=== PATIENT | male | born 1950 | race Caucasian/White ===

== ENCOUNTER 2021-03-22 14:42 | Inpatient (IN) | payer OTHER ==
[~2021-03-22] VITALS: Ht 182.9 cm; Wt 75.3 kg
[2021-03-22 17:24] LABS: BUN/Creatinine Ratio 27.2; Calcium 6.6 mg/dL (8.5-10.1)
[2021-03-22 17:56] LABS: Potassium 2.2 mmol/L (3.5-5.1)
[2021-03-22] MEDS ORDERED: ACETAMINOPHEN 325 MG TAB PO PRN (21:45)
[2021-03-22] MEDS ORDERED: DOCUSATE SOD 100 MG CAP PO PRN (21:45)
[2021-03-22] MEDS ORDERED: CALCIUM GLUC 1,000mg/50ml-NS 50 ML IV ONE (21:45)
[2021-03-22] MEDS ORDERED: ONDANSETRON HCL 4 MG/2 ML VIAL IV PRN (21:45)
[2021-03-22] MEDS: POTASSIUM CHL 20MEQ/100ML 100 ML IV SCH (22:19)
[2021-03-22] MEDS: SODIUM CHLOR 0.9% PF (SALINE LOCK) 10ML VIAL/SYR IV SCH (22:19)
[2021-03-22] MEDS ORDERED: MORPHINE SULFATE INJECTION 2 MG/ML SYRG IV PRN (22:30)
[2021-03-22] MEDS ORDERED: TEMAZEPAM 15 MG CAP PO ONE (22:30)
[2021-03-22] MEDS ORDERED: NITROGLYCERIN 0.4 MG SL TAB SL PRN (22:30)
[2021-03-22] MEDS: TEMAZEPAM 15 MG CAP PO PRN (22:30)
[2021-03-22] MEDS: ASCORBIC ACID 500 MG TAB PO SCH (22:30)
[2021-03-22 22:48] LABS: Hemoglobin 9.9 g/dL (13.5-17.5); Mean Corpuscular Volume 97.9 fL (80.0-100.0)
[2021-03-22 22:50] LABS: Basophils # (auto) 0 10 ^3/uL (0-0.2); Basophils % (auto) 0.6 % (0.0-2.0); Eosinophils # (auto) 0.1 10 ^3/uL (0-0.8); Eosinophils % (auto) 0.7 % (0.0-7.0); Hematocrit 28.6 % (41.0-53.0); Lymphocytes # (auto) 1.7 10 ^3/uL (0.4-5.4); Lymphocytes % (auto) 24.1 % (10.0-50.0); Mean Corpuscular Hemoglobin 33.9 pg (28.0-32.0); Mean Corpuscular Hgb Conc. 34.6 g/dL (32.0-36.0); Monocytes # (auto) 0.9 10 ^3/uL (0-1.3); Neutrophils # (auto) 4.2 10 ^3/uL (1.6-8.6); Neutrophils % (auto) 61.6 % (37.0-80.0); Nucleated Red Blood Cells % 0.1 %; Red Blood Cells 2.92 10^6/uL (4.5-5.90); Red Cell Distribution Width 13.8 % (11.8-14.3); White Blood Cell 6.9 10^3/uL (4.4-10.8)
[2021-03-22 23:00] VITALS: BP 106/73
[2021-03-22 23:07] LABS: Albumin 1.7 g/dL (3.4-5.0)
[2021-03-22 23:15] LABS: BUN/Creatinine Ratio 30.2; Bilirubin, Total 0.3 mg/dL (0.2-1.0); Phosphorus 2.7 mg/dL (2.5-4.90); Total Protein 4.8 g/dL (6.4-8.2)
[2021-03-22 23:56] LABS: Calcium 22.5 mg/dL (8.5-10.1); Magnesium 0.8 mg/dL (1.6-2.6); Potassium 1.6 mmol/L (3.5-5.1)
[2021-03-23] VITALS (7 sets, daily range): BP systolic 96–119; BP diastolic 64–78
[2021-03-23] MEDS ORDERED: POTASSIUM CHL 20MEQ/100ML 200 ML IV ONE (00:04)
[2021-03-23] MEDS: POTASSIUM CHL 20MEQ/100ML 100 ML IV SCH ×2 (00:10→03:03)
[2021-03-23 06:19] LABS: Albumin 2.2 g/dL (3.4-5.0); BUN/Creatinine Ratio 24.7; Calcium 6.4 mg/dL (8.5-10.1)
[2021-03-23 06:22] LABS: Bilirubin, Total 0.4 mg/dL (0.2-1.0); Total Protein 5.7 g/dL (6.4-8.2)
[2021-03-23 06:25] LABS: Basophils # (auto) 0 10 ^3/uL (0-0.2); Eosinophils # (auto) 0 10 ^3/uL (0-0.8); Red Cell Distribution Width 13.9 % (11.8-14.3)
[2021-03-23 06:28] LABS: Basophils % (auto) 0.4 % (0.0-2.0); Eosinophils % (auto) 0.6 % (0.0-7.0); Hemoglobin 10.9 g/dL (13.5-17.5); Lymphocytes # (auto) 1.4 10 ^3/uL (0.4-5.4); Lymphocytes % (auto) 20.7 % (10.0-50.0); Mean Corpuscular Hemoglobin 34.7 pg (28.0-32.0); Mean Corpuscular Hgb Conc. 35.3 g/dL (32.0-36.0); Mean Corpuscular Volume 98.4 fL (80.0-100.0); Monocytes # (auto) 0.7 10 ^3/uL (0-1.3); Monocytes % (auto) 10.3 % (0.0-12.0); Neutrophils # (auto) 4.7 10 ^3/uL (1.6-8.6); Nucleated Red Blood Cells % 0.1 %; Red Blood Cells 3.15 10^6/uL (4.5-5.90); White Blood Cell 6.9 10^3/uL (4.4-10.8)
[2021-03-23 06:31] LABS: Potassium 2.4 mmol/L (3.5-5.1)
[2021-03-23] MEDS: SODIUM CHLOR 0.9% PF (SALINE LOCK) 10ML VIAL/SYR IV SCH ×2 (06:39→14:12)
[2021-03-23 06:57] LABS: Cholesterol 166 mg/dL (< 200); Triglycerides 120 mg/dL (< 150)
[2021-03-23 07:00] LABS: HDL Cholesterol 64 mg/dL (40-59); LDL Cholesterol 82 mg/dL (< 100)
[2021-03-23] MEDS ORDERED: POTASSIUM CHL 20 Meq TABLET PO ONE (07:15)
[2021-03-23] MEDS ORDERED: CALCIUM GLUC 1,000mg/50ml-NS 50 ML IV ONE (07:15)
[2021-03-23] MEDS ORDERED: POTASSIUM CHL 20MEQ/100ML 100 ML IV SCH (08:45)
[2021-03-23] MEDS ORDERED: MAGNESIUM SULFATE 1GM/100ML 100 ML IV SCH (09:00)
[2021-03-23] MEDS ORDERED: FAMOTIDINE (10MG/ML) 2ML VL IV SCH (10:00)
[2021-03-23] MEDS: POTASSIUM CHL 20 Meq TABLET PO SCH ×2 (10:22→21:24)
[2021-03-23] MEDS: ASPirin 81 mg TAB PO SCH (10:22)
[2021-03-23] MEDS: MAGNESIUM SULFATE 1GM/100ML 100 ML IV SCH ×5 (10:23→18:56)
[2021-03-23] MEDS: HYDROcodone-ACET 5/325MG TAB PO PRN ×2 (12:32→13:01)
[2021-03-23] MEDS: ZINC SULFATE 220mg CAP or TAB PO SCH (13:00)
[2021-03-23] MEDS: MULTIPLE VITAMIN TAB PO SCH (13:00)
[2021-03-23] MEDS: ASCORBIC ACID 500 MG TAB PO SCH ×2 (13:01→21:23)
[2021-03-23] MEDS ORDERED: D5 IV SCH (13:15)
[2021-03-23] MEDS ORDERED: POTASSIUM CHLORIDE IV SCH (13:15)
[2021-03-23] MEDS ORDERED: SOD CHL IV SCH (13:15)
[2021-03-23] MEDS: GABAPENTIN 300 MG CAP PO SCH ×2 (14:12→21:24)
[2021-03-23] MEDS: D5W/SOD CHL 0.45%/KCL 40MEQ 1,000 ML IV SCH (14:56)
[2021-03-23] MEDS: TAMSULOSIN HYDROCHLORIDE 0.4 MG CAP PO SCH (18:23)
[2021-03-23] MEDS: TEMAZEPAM 15 MG CAP PO PRN (21:23)
[2021-03-24] VITALS (7 sets, daily range): BP systolic 100–118; BP diastolic 66–80
[2021-03-24] MEDS: SODIUM CHLOR 0.9% PF (SALINE LOCK) 10ML VIAL/SYR IV SCH ×3 (00:12→22:10)
[2021-03-24] MEDS ORDERED: TEMA30CA PO (01:33)
[2021-03-24] MEDS ORDERED: TIZA4CAP PO (01:33)
[2021-03-24] MEDS ORDERED: ONDA-144 PO (01:33)
[2021-03-24] MEDS ORDERED: FOLI1TAB6 PO (01:33)
[2021-03-24] MEDS ORDERED: FELO10TA3 PO (01:33)
[2021-03-24] MEDS ORDERED: POTA10TA51 PO (01:33)
[2021-03-24] MEDS ORDERED: TAMS0.4C36 PO (01:33)
[2021-03-24] MEDS ORDERED: OMEP20TA PO (01:33)
[2021-03-24] MEDS ORDERED: CHOL20007 OR (01:33)
[2021-03-24] MEDS: D5W/SOD CHL 0.45%/KCL 40MEQ 1,000 ML IV SCH ×3 (06:03→20:30)
[2021-03-24] MEDS: GABAPENTIN 300 MG CAP PO SCH ×3 (06:03→22:10)
[2021-03-24] MEDS ORDERED: ENOXAPARIN SOD 40 MG/0.4 ML SYRINGE SC SCH (10:00)
[2021-03-24] MEDS: MULTIPLE VITAMIN TAB PO SCH (10:06)
[2021-03-24] MEDS: ZINC SULFATE 220mg CAP or TAB PO SCH (10:06)
[2021-03-24] MEDS: ASPirin 81 mg TAB PO SCH (10:06)
[2021-03-24] MEDS: ASCORBIC ACID 500 MG TAB PO SCH ×2 (10:06→22:10)
[2021-03-24] MEDS ORDERED: DEXTROSE (50%) 50ML SYRG IV PRN (10:15)
[2021-03-24 10:52] LABS: Potassium 3.2 mmol/L (3.5-5.1)
[2021-03-24 10:57] LABS: Basophils # (auto) 0 10 ^3/uL (0-0.2); Basophils % (auto) 0.2 % (0.0-2.0); Eosinophils # (auto) 0 10 ^3/uL (0-0.8); Nucleated Red Blood Cells % 0.1 %; Red Blood Cells 2.83 10^6/uL (4.5-5.90)
[2021-03-24 10:59] LABS: Eosinophils % (auto) 0.3 % (0.0-7.0); Hematocrit 28.2 % (41.0-53.0); Hemoglobin 9.7 g/dL (13.5-17.5); Lymphocytes # (auto) 1.1 10 ^3/uL (0.4-5.4); Lymphocytes % (auto) 10.9 % (10.0-50.0); Mean Corpuscular Hemoglobin 34.4 pg (28.0-32.0); Mean Corpuscular Hgb Conc. 34.6 g/dL (32.0-36.0); Mean Corpuscular Volume 99.5 fL (80.0-100.0); Monocytes # (auto) 0.7 10 ^3/uL (0-1.3); Monocytes % (auto) 7.4 % (0.0-12.0); Neutrophils # (auto) 8.1 10 ^3/uL (1.6-8.6); Neutrophils % (auto) 81.2 % (37.0-80.0); Red Cell Distribution Width 14.1 % (11.8-14.3); White Blood Cell 9.9 10^3/uL (4.4-10.8)
[2021-03-24 11:01] LABS: Albumin 2.1 g/dL (3.4-5.0); BUN/Creatinine Ratio 25.4; Bilirubin, Total 0.6 mg/dL (0.2-1.0); Calcium 6.6 mg/dL (8.5-10.1); Total Protein 5.1 g/dL (6.4-8.2)
[2021-03-24] MEDS ORDERED: FUROSEMIDE 20 MG/2 ML VIAL IV ONE (11:15)
[2021-03-24] MEDS: ACCU-CHEK COMFORT CURVE STRIP VI SCH ×3 (11:29→22:23)
[2021-03-24] MEDS: InsuLIN REG 1unit/0.01ml Soln (100units/ml) SC SCH ×3 (11:29→22:00)
[2021-03-24] MEDS: TAMSULOSIN HYDROCHLORIDE 0.4 MG CAP PO SCH (17:35)
[2021-03-24] MEDS: ALBUTEROL SULF 2.5 MG/0.5ML(0.5%) NEB SOLN NEB SCH ×2 (18:00→22:00)
[2021-03-24] MEDS: IPRATROPIUM BROM 0.5 MG/2.5ML INH SOL NEB SCH ×2 (18:00→22:00)
[2021-03-24] MEDS: TEMAZEPAM 15 MG CAP PO PRN (22:10)
[2021-03-24] MEDS: HYDROcodone-ACET 5/325MG TAB PO PRN (22:11)
[2021-03-25 05:30] VITALS: BP 106/70
[2021-03-25] MEDS: HYDROcodone-ACET 5/325MG TAB PO PRN ×3 (05:44→18:40)
[2021-03-25] MEDS: GABAPENTIN 300 MG CAP PO SCH ×3 (05:44→21:19)
[2021-03-25] MEDS: SODIUM CHLOR 0.9% PF (SALINE LOCK) 10ML VIAL/SYR IV SCH ×3 (05:45→21:19)
[2021-03-25] MEDS: D5W/SOD CHL 0.45%/KCL 40MEQ 1,000 ML IV SCH (05:46)
[2021-03-25] MEDS: InsuLIN REG 1unit/0.01ml Soln (100units/ml) SC SCH (05:46)
[2021-03-25] MEDS: ACCU-CHEK COMFORT CURVE STRIP VI SCH (05:46)
[2021-03-25] MEDS: IPRATROPIUM BROM 0.5 MG/2.5ML INH SOL NEB SCH ×4 (05:50→18:00)
[2021-03-25] MEDS: ALBUTEROL SULF 2.5 MG/0.5ML(0.5%) NEB SOLN NEB SCH ×4 (05:55→18:00)
[2021-03-25 05:56] LABS: Basophils # (auto) 0 10 ^3/uL (0-0.2); Eosinophils # (auto) 0.1 10 ^3/uL (0-0.8); Hemoglobin 9.6 g/dL (13.5-17.5); Lymphocytes # (auto) 1.3 10 ^3/uL (0.4-5.4); Neutrophils # (auto) 6.2 10 ^3/uL (1.6-8.6); Neutrophils % (auto) 73.8 % (37.0-80.0)
[2021-03-25 05:57] LABS: Basophils % (auto) 0.1 % (0.0-2.0); Eosinophils % (auto) 0.9 % (0.0-7.0); Hematocrit 28.3 % (41.0-53.0); Lymphocytes % (auto) 15.4 % (10.0-50.0); Mean Corpuscular Hemoglobin 34.1 pg (28.0-32.0); Mean Corpuscular Hgb Conc. 33.9 g/dL (32.0-36.0); Mean Corpuscular Volume 100.4 fL (80.0-100.0); Monocytes # (auto) 0.8 10 ^3/uL (0-1.3); Monocytes % (auto) 9.8 % (0.0-12.0); Red Blood Cells 2.81 10^6/uL (4.5-5.90); Red Cell Distribution Width 14.1 % (11.8-14.3); White Blood Cell 8.4 10^3/uL (4.4-10.8)
[2021-03-25 06:19] LABS: Albumin 2.1 g/dL (3.4-5.0); Calcium 7.1 mg/dL (8.5-10.1); Potassium 3.7 mmol/L (3.5-5.1)
[2021-03-25 06:24] LABS: BUN/Creatinine Ratio 25.8; Bilirubin, Total 0.5 mg/dL (0.2-1.0); Total Protein 5.1 g/dL (6.4-8.2)
[2021-03-25 09:00] VITALS: BP 96/55
[2021-03-25] MEDS ORDERED: SPIRONOLACTONE 25 MG TAB PO SCH (10:00)
[2021-03-25] MEDS ORDERED: predniSONE 20 MG TAB PO SCH (10:00)
[2021-03-25] MEDS ORDERED: AZITHROMYCIN 250 MG TAB PO SCH (10:00)
[2021-03-25] MEDS ORDERED: MAGNESIUM OXIDE 400 MG TAB PO ONE (10:15)
[2021-03-25] MEDS ORDERED: FUROSEMIDE 20 MG/2 ML VIAL IV ONE (10:15)
[2021-03-25] MEDS ORDERED: PIPERACILLIN-TAZOB 3.375GM 100 ML IV ONE (10:15)
[2021-03-25] MEDS ORDERED: POTASSIUM CHL 20 Meq TABLET PO ONE (10:15)
[2021-03-25] MEDS ORDERED: ENOXAPARIN SOD 80 MG/0.8ML SYRINGE SC ONE (10:15)
[2021-03-25] MEDS: ASPirin 81 mg TAB PO SCH (10:20)
[2021-03-25] MEDS: SPIRONOLACTONE 25 MG TAB PO SCH (10:21)
[2021-03-25] MEDS: MULTIPLE VITAMIN TAB PO SCH (10:21)
[2021-03-25] MEDS ORDERED: IOHEXOL 300 MG/ML 100ML BOTTLE IJ ONE (10:29)
[2021-03-25] MEDS ORDERED: DIGOXIN (250MCG/ML) 2 ML AMPULE IV ONE (10:30)
[2021-03-25 11:10] LABS: Folate (Folic Acid) 9.6 ng/mL (5.38-24)
[2021-03-25 11:20] LABS: INR 1.03 (0.9-1.15); Partial Thromboplastin Time 30.9 sec (23.6-33.0)
[2021-03-25 13:00] VITALS: BP_SYST 106; BP_SYST 96; BP_SYST 99; BP_DIAS 66; BP_DIAS 69
[2021-03-25 17:00] VITALS: BP 121/78
[2021-03-25] MEDS ORDERED: IOHEXOL 350 MG/ML 100ML IJ ONE (17:28)
[2021-03-25] MEDS: TAMSULOSIN HYDROCHLORIDE 0.4 MG CAP PO SCH (18:11)
[2021-03-25] MEDS: PIPERACILLIN-TAZOB 3.375GM 100 ML IV SCH (18:11)
[2021-03-25 20:00] VITALS: BP 100/57
[2021-03-25] MEDS: MAGNESIUM OXIDE 400 MG TAB PO SCH (21:19)
[2021-03-25 22:00] VITALS: BP 122/68
[2021-03-25] MEDS ORDERED: ENOXAPARIN SOD 80 MG/0.8ML SYRINGE SC SCH (22:00)
[2021-03-26] MEDS: ALBUTEROL SULF 2.5 MG/0.5ML(0.5%) NEB SOLN NEB SCH (01:53)
[2021-03-26] MEDS: IPRATROPIUM BROM 0.5 MG/2.5ML INH SOL NEB SCH (01:53)
[2021-03-26 06:09] LABS: Basophils # (auto) 0 10 ^3/uL (0-0.2); Basophils % (auto) 0.3 % (0.0-2.0); Eosinophils # (auto) 0 10 ^3/uL (0-0.8); Eosinophils % (auto) 0.4 % (0.0-7.0); Hematocrit 27.8 % (41.0-53.0); Hemoglobin 9.4 g/dL (13.5-17.5); Lymphocytes # (auto) 1.3 10 ^3/uL (0.4-5.4); Lymphocytes % (auto) 13.1 % (10.0-50.0); Mean Corpuscular Hemoglobin 33.9 pg (28.0-32.0); Mean Corpuscular Hgb Conc. 33.8 g/dL (32.0-36.0); Mean Corpuscular Volume 100.3 fL (80.0-100.0); Monocytes # (auto) 1.1 10 ^3/uL (0-1.3); Monocytes % (auto) 10.6 % (0.0-12.0); Neutrophils # (auto) 7.5 10 ^3/uL (1.6-8.6); Neutrophils % (auto) 75.6 % (37.0-80.0); Nucleated Red Blood Cells % 0.1 %; Red Blood Cells 2.77 10^6/uL (4.5-5.90); Red Cell Distribution Width 13.6 % (11.8-14.3)
[2021-03-26 06:29] LABS: Potassium 4.6 mmol/L (3.5-5.1)
[2021-03-26 06:50] LABS: Albumin 2.2 g/dL (3.4-5.0); BUN/Creatinine Ratio 39.3; Bilirubin, Total 0.4 mg/dL (0.2-1.0); Calcium 7.5 mg/dL (8.5-10.1); Total Protein 5.3 g/dL (6.4-8.2)
[2021-03-26] MEDS: PIPERACILLIN-TAZOB 3.375GM 100 ML IV SCH ×3 (07:03→18:34)
[2021-03-26] MEDS: GABAPENTIN 300 MG CAP PO SCH ×3 (07:03→22:46)
[2021-03-26] MEDS: SODIUM CHLOR 0.9% PF (SALINE LOCK) 10ML VIAL/SYR IV SCH ×3 (07:03→22:44)
[2021-03-26] MEDS ORDERED: ALBUTEROL SULF 2.5 MG/0.5ML(0.5%) NEB SOLN NEB PRN (07:45)
[2021-03-26] MEDS ORDERED: IPRATROPIUM BROM 0.5 MG/2.5ML INH SOL NEB PRN (07:45)
[2021-03-26 09:00] VITALS: BP 120/87
[2021-03-26] MEDS ORDERED: DIGOXIN 0.25 MG TAB PO SCH (10:00)
[2021-03-26] MEDS ORDERED: APIXABAN 5 MG TAB PO SCH (10:00)
[2021-03-26] MEDS ORDERED: chlordiazePOXIDE HCL 25 MG CAP PO PRN (10:00)
[2021-03-26] MEDS ORDERED: POTASSIUM CHL 10 Meq TABLET PO SCH (10:00)
[2021-03-26] MEDS: ASPirin 81 mg TAB PO SCH (10:22)
[2021-03-26] MEDS: CARVEDILOL 3.125 MG TAB PO SCH ×2 (10:23→22:45)
[2021-03-26] MEDS: SPIRONOLACTONE 25 MG TAB PO SCH (10:23)
[2021-03-26] MEDS: FUROSEMIDE 40 MG TAB PO SCH (10:25)
[2021-03-26] MEDS: MULTIPLE VITAMIN TAB PO SCH (10:25)
[2021-03-26] MEDS: MAGNESIUM OXIDE 400 MG TAB PO SCH ×2 (10:30→22:46)
[2021-03-26] MEDS: SACUBITRIL-VALSARTAN 24mg/26mg TAB PO SCH ×2 (12:25→22:45)
[2021-03-26 13:00] VITALS: BP 101/67
[2021-03-26 16:55] VITALS: BP 111/73
[2021-03-26] MEDS: TAMSULOSIN HYDROCHLORIDE 0.4 MG CAP PO SCH (18:34)
[2021-03-26 22:00] VITALS: BP 103/75
[2021-03-27] VITALS (10 sets, daily range): BP systolic 107–128; BP diastolic 59–86
[2021-03-27 01:45] LABS: Alcohol, Urine < 3.0 mg/dL (0-10); Amphetamine Screen, Urine NEGATIVE (NEGATIVE); Barbiturate Scree,Urine NEGATIVE (NEGATIVE); Benzodiazephine Screen, Urine NEGATIVE (NEGATIVE); Cannabinoid Screen, Urine NEGATIVE (NEGATIVE); Cocaine Screen, Urine NEGATIVE (NEGATIVE); Opiate Scree,Urine NEGATIVE (NEGATIVE); Phencyclidine Screen, Urine NEGATIVE (NEGATIVE)
[2021-03-27] MEDS: PIPERACILLIN-TAZOB 3.375GM 100 ML IV SCH ×3 (02:17→18:25)
[2021-03-27 06:10] LABS: Basophils # (auto) 0 10 ^3/uL (0-0.2); Basophils % (auto) 0.3 % (0.0-2.0); Eosinophils # (auto) 0.1 10 ^3/uL (0-0.8); Eosinophils % (auto) 0.8 % (0.0-7.0); Hematocrit 27.6 % (41.0-53.0); Lymphocytes # (auto) 0.9 10 ^3/uL (0.4-5.4); Neutrophils # (auto) 7.2 10 ^3/uL (1.6-8.6); White Blood Cell 9.6 10^3/uL (4.4-10.8)
[2021-03-27 06:12] LABS: Hemoglobin 9.4 g/dL (13.5-17.5); Lymphocytes % (auto) 9.3 % (10.0-50.0); Mean Corpuscular Hemoglobin 34.3 pg (28.0-32.0); Mean Corpuscular Hgb Conc. 34.1 g/dL (32.0-36.0); Mean Corpuscular Volume 100.6 fL (80.0-100.0); Monocytes # (auto) 1.4 10 ^3/uL (0-1.3); Monocytes % (auto) 14.7 % (0.0-12.0); Neutrophils % (auto) 74.9 % (37.0-80.0); Red Blood Cells 2.74 10^6/uL (4.5-5.90); Red Cell Distribution Width 13.9 % (11.8-14.3)
[2021-03-27 06:16] LABS: Partial Thromboplastin Time 27.6 sec (23.6-33.0)
[2021-03-27 06:25] LABS: Potassium 5.5 mmol/L (3.5-5.1)
[2021-03-27 06:30] LABS: BUN/Creatinine Ratio 25.4; Calcium 7.7 mg/dL (8.5-10.1)
[2021-03-27] MEDS: GABAPENTIN 300 MG CAP PO SCH ×3 (06:43→22:59)
[2021-03-27] MEDS: SODIUM CHLOR 0.9% PF (SALINE LOCK) 10ML VIAL/SYR IV SCH ×3 (06:43→18:25)
[2021-03-27] MEDS ORDERED: SODIUM ZIRCONIUM CYCL 10 GM PAK PO ONE (09:45)
[2021-03-27] MEDS ORDERED: CALCIUM GLUC 1,000mg/50ml-NS 50 ML IV ONE (09:45)
[2021-03-27] MEDS: MULTIPLE VITAMIN TAB PO SCH (10:00)
[2021-03-27] MEDS ORDERED: DIGOXIN 0.25 MG TAB PO SCH (10:00)
[2021-03-27] MEDS: FUROSEMIDE 40 MG TAB PO SCH (10:00)
[2021-03-27] MEDS: CARVEDILOL 3.125 MG TAB PO SCH ×2 (10:00→22:59)
[2021-03-27] MEDS: ASPirin 81 mg TAB PO SCH (10:00)
[2021-03-27] MEDS: DIGOXIN 0.125 MG TAB PO SCH (10:00)
[2021-03-27] MEDS ORDERED: HEPARIN SODIUM (PORCINE) 5000 UNITS/ML 1ML VIAL ONE (12:20)
[2021-03-27] MEDS ORDERED: ANGIOMAX 250 MG VIAL IV ONE (12:20)
[2021-03-27] MEDS ORDERED: VERAPAMIL 2.5MG/ML INJ 2ML VIAL IV ONE (12:20)
[2021-03-27] MEDS ORDERED: MIDAZOLAM HCL 2MG/2ML 2ml VIAL (1mg/ml) ONE (12:21)
[2021-03-27] MEDS ORDERED: SODIUM CHL 0.9% 0 ML ONE (12:21)
[2021-03-27] MEDS ORDERED: fentaNYL CITRATE 100 MCG/2 ML VL ONE (12:21)
[2021-03-27] MEDS ORDERED: IODIXANOL 320MG/ML 100ML BTL IV ONE ×2 (12:26→13:08)
[2021-03-27] MEDS ORDERED: LIDOCAINE 2%HCL (LOCAL ANESTH.) INJ 20ML MDV ONE (12:27)
[2021-03-27] MEDS: TAMSULOSIN HYDROCHLORIDE 0.4 MG CAP PO SCH (18:26)
[2021-03-27] MEDS: HYDROcodone-ACET 5/325MG TAB PO PRN (18:26)
[2021-03-27] MEDS: TEMAZEPAM 15 MG CAP PO PRN (22:59)
[2021-03-28] MEDS: PIPERACILLIN-TAZOB 3.375GM 100 ML IV SCH ×3 (02:00→18:04)
[2021-03-28 05:00] VITALS: BP 117/72
[2021-03-28 05:28] LABS: Basophils # (auto) 0 10 ^3/uL (0-0.2); Basophils % (auto) 0.5 % (0.0-2.0); Eosinophils # (auto) 0.1 10 ^3/uL (0-0.8); Eosinophils % (auto) 0.8 % (0.0-7.0); Hematocrit 29.6 % (41.0-53.0); Lymphocytes # (auto) 1.3 10 ^3/uL (0.4-5.4); Lymphocytes % (auto) 15.7 % (10.0-50.0); Mean Corpuscular Hgb Conc. 33.9 g/dL (32.0-36.0); Mean Corpuscular Volume 100.2 fL (80.0-100.0); Monocytes # (auto) 1.5 10 ^3/uL (0-1.3); Monocytes % (auto) 17.7 % (0.0-12.0); Neutrophils # (auto) 5.6 10 ^3/uL (1.6-8.6); Neutrophils % (auto) 65.3 % (37.0-80.0); Red Blood Cells 2.95 10^6/uL (4.5-5.90); White Blood Cell 8.5 10^3/uL (4.4-10.8)
[2021-03-28 06:12] LABS: Calcium 8.4 mg/dL (8.5-10.1); Potassium 4.8 mmol/L (3.5-5.1)
[2021-03-28] MEDS: SODIUM CHLOR 0.9% PF (SALINE LOCK) 10ML VIAL/SYR IV SCH ×3 (07:05→21:27)
[2021-03-28] MEDS: GABAPENTIN 300 MG CAP PO SCH ×3 (07:05→18:14)
[2021-03-28] MEDS ORDERED: fentaNYL CITRATE 100 MCG/2 ML VL ONE (08:42)
[2021-03-28] MEDS ORDERED: PROPOFOL 10 MG/ML 20 ML IV ONE (08:42)
[2021-03-28] MEDS ORDERED: ONDANSETRON HCL 4 MG/2 ML VIAL ONE (08:42)
[2021-03-28] MEDS ORDERED: MIDAZOLAM HCL 2MG/2ML 2ml VIAL (1mg/ml) ONE (08:42)
[2021-03-28 09:00] VITALS: BP 110/77
[2021-03-28 09:00] LABS: Urine Bacteria NONE SEEN /hpf (None Seen); Urine Blood Negative /uL (Negative); Urine Specific Gravity 1.008 (1.001-1.035); Urine WBC <1 /hpf (0 - 3)
[2021-03-28] MEDS: MULTIPLE VITAMIN TAB PO SCH (10:00)
[2021-03-28] MEDS ORDERED: MORPHINE SULFATE 4 MG/ML SYR/VIAL IV PRN (10:00)
[2021-03-28] MEDS ORDERED: HYDROmorphone HCL 2 MG/ML VL IV PRN (10:00)
[2021-03-28] MEDS: FUROSEMIDE 40 MG TAB PO SCH (10:00)
[2021-03-28] MEDS: ASPirin 81 mg TAB PO SCH (10:00)
[2021-03-28] MEDS ORDERED: METOCLOPRAMIDE HCL 5MG/ml INJ 2ml VIAL IV PRN (10:00)
[2021-03-28] MEDS: DIGOXIN 0.125 MG TAB PO SCH (10:22)
[2021-03-28] MEDS: CARVEDILOL 3.125 MG TAB PO SCH ×2 (10:22→21:27)
[2021-03-28] MEDS ORDERED: ceFAZolin 1GM VL ONE (12:18)
[2021-03-28] MEDS ORDERED: ROPIVACAINE 0.5% (5MG/ML) 20ML AMPULE IJ ONE (12:18)
[2021-03-28] MEDS: HYDROcodone-ACET 5/325MG TAB PO PRN (13:57)
[2021-03-28 17:00] VITALS: BP 106/71
[2021-03-28] MEDS: TAMSULOSIN HYDROCHLORIDE 0.4 MG CAP PO SCH (18:04)
[2021-03-28] MEDS: TEMAZEPAM 15 MG CAP PO PRN (21:28)
[2021-03-29] MEDS: PIPERACILLIN-TAZOB 3.375GM 100 ML IV SCH ×3 (02:28→18:35)
[2021-03-29 05:50] VITALS: BP 106/60
[2021-03-29] MEDS: SODIUM CHLOR 0.9% PF (SALINE LOCK) 10ML VIAL/SYR IV SCH ×3 (06:16→21:40)
[2021-03-29] MEDS: GABAPENTIN 300 MG CAP PO SCH ×3 (06:16→21:40)
[2021-03-29 06:57] LABS: Basophils # (auto) 0 10 ^3/uL (0-0.2); Eosinophils # (auto) 0.1 10 ^3/uL (0-0.8); Neutrophils # (auto) 5.3 10 ^3/uL (1.6-8.6); Nucleated Red Blood Cells % 0.1 %
[2021-03-29 07:13] LABS: Basophils % (auto) 0.4 % (0.0-2.0); Eosinophils % (auto) 1.3 % (0.0-7.0); Hematocrit 26.6 % (41.0-53.0); Hemoglobin 9.3 g/dL (13.5-17.5); Lymphocytes # (auto) 1.3 10 ^3/uL (0.4-5.4); Lymphocytes % (auto) 15.9 % (10.0-50.0); Mean Corpuscular Hemoglobin 35.1 pg (28.0-32.0); Mean Corpuscular Hgb Conc. 34.8 g/dL (32.0-36.0); Mean Corpuscular Volume 100.8 fL (80.0-100.0); Monocytes # (auto) 1.4 10 ^3/uL (0-1.3); Monocytes % (auto) 16.8 % (0.0-12.0); Neutrophils % (auto) 65.6 % (37.0-80.0); Red Blood Cells 2.64 10^6/uL (4.5-5.90); White Blood Cell 8.2 10^3/uL (4.4-10.8)
[2021-03-29 07:22] LABS: BUN/Creatinine Ratio 16.2; Potassium 4.7 mmol/L (3.5-5.1)
[2021-03-29 07:30] LABS: Calcium 8.1 mg/dL (8.5-10.1)
[2021-03-29] MEDS: HYDROcodone-ACET 5/325MG TAB PO PRN ×2 (07:33→21:41)
[2021-03-29 09:00] VITALS: BP 117/78
[2021-03-29] MEDS: ASPirin 81 mg TAB PO SCH ×2 (09:42→10:00)
[2021-03-29] MEDS: MULTIPLE VITAMIN TAB PO SCH (09:42)
[2021-03-29] MEDS: CARVEDILOL 3.125 MG TAB PO SCH ×2 (09:43→21:42)
[2021-03-29] MEDS: FUROSEMIDE 40 MG TAB PO SCH (09:43)
[2021-03-29] MEDS: DIGOXIN 0.125 MG TAB PO SCH (09:44)
[2021-03-29] MEDS ORDERED: ceFAZolin 1GM/50ML 100 ML IV ONE (12:34)
[2021-03-29] MEDS ORDERED: MORPHINE SULFATE 4 MG/ML SYR/VIAL IV PRN (12:45)
[2021-03-29] MEDS ORDERED: METOCLOPRAMIDE HCL 5MG/ml INJ 2ml VIAL IV PRN (12:45)
[2021-03-29] MEDS ORDERED: HYDROmorphone HCL 2 MG/ML VL IV PRN (12:45)
[2021-03-29 13:00] VITALS: BP 113/89
[2021-03-29] MEDS ORDERED: NEOMYCIN-BACITRACIN-POLYM 15GM TOP OINT TOP ONE (13:21)
[2021-03-29] MEDS: MORPHINE SULFATE INJECTION 2 MG/ML SYRG IV PRN (16:28)
[2021-03-29 17:00] VITALS: BP 121/54
[2021-03-29] MEDS: TAMSULOSIN HYDROCHLORIDE 0.4 MG CAP PO SCH (18:35)
[2021-03-29] MEDS: TEMAZEPAM 15 MG CAP PO PRN (22:27)
[2021-03-30] MEDS: PIPERACILLIN-TAZOB 3.375GM 100 ML IV SCH ×3 (02:16→17:30)
[2021-03-30] MEDS: HYDROcodone-ACET 5/325MG TAB PO PRN ×2 (04:00→15:14)
[2021-03-30 05:00] VITALS: BP 106/71
[2021-03-30] MEDS: SODIUM CHLOR 0.9% PF (SALINE LOCK) 10ML VIAL/SYR IV SCH ×4 (05:15→22:00)
[2021-03-30] MEDS: GABAPENTIN 300 MG CAP PO SCH ×3 (05:17→21:28)
[2021-03-30 05:44] LABS: Basophils # (auto) 0.1 10 ^3/uL (0-0.2); Basophils % (auto) 0.7 % (0.0-2.0); Eosinophils # (auto) 0 10 ^3/uL (0-0.8); Hemoglobin 9.5 g/dL (13.5-17.5); Lymphocytes # (auto) 1.1 10 ^3/uL (0.4-5.4); White Blood Cell 8.9 10^3/uL (4.4-10.8)
[2021-03-30 05:47] LABS: Hematocrit 27.7 % (41.0-53.0); Lymphocytes % (auto) 12.8 % (10.0-50.0); Mean Corpuscular Hemoglobin 34.1 pg (28.0-32.0); Mean Corpuscular Hgb Conc. 34.2 g/dL (32.0-36.0); Mean Corpuscular Volume 99.8 fL (80.0-100.0); Monocytes % (auto) 11.7 % (0.0-12.0); Neutrophils # (auto) 6.7 10 ^3/uL (1.6-8.6); Neutrophils % (auto) 74.8 % (37.0-80.0); Nucleated Red Blood Cells % 0.1 %; Red Blood Cells 2.78 10^6/uL (4.5-5.90); Red Cell Distribution Width 14.1 % (11.8-14.3)
[2021-03-30 05:51] LABS: Calcium 7.8 mg/dL (8.5-10.1); Potassium 4.6 mmol/L (3.5-5.1)
[2021-03-30 05:53] LABS: BUN/Creatinine Ratio 21.8
[2021-03-30] MEDS: MORPHINE SULFATE INJECTION 2 MG/ML SYRG IV PRN (08:03)
[2021-03-30 09:00] VITALS: BP 114/68
[2021-03-30 09:35] VITALS: BP 101/48
[2021-03-30] MEDS: DIGOXIN 0.125 MG TAB PO SCH (10:00)
[2021-03-30] MEDS: FUROSEMIDE 40 MG TAB PO SCH (10:00)
[2021-03-30] MEDS: CARVEDILOL 3.125 MG TAB PO SCH ×2 (10:00→21:25)
[2021-03-30] MEDS ORDERED: LIDOCAINE 1% (LOCAL ANESTH.) PF 5ml SDV ID ONE (11:00)
[2021-03-30] MEDS: ASPirin 81 mg TAB PO SCH (11:06)
[2021-03-30] MEDS: MULTIPLE VITAMIN TAB PO SCH (11:06)
[2021-03-30 13:00] VITALS: BP 101/48
[2021-03-30 17:00] VITALS: BP 102/70
[2021-03-30] MEDS: TAMSULOSIN HYDROCHLORIDE 0.4 MG CAP PO SCH (17:30)
[2021-03-30 22:00] VITALS: BP 99/56
[2021-03-31] MEDS: PIPERACILLIN-TAZOB 3.375GM 100 ML IV SCH ×3 (02:07→17:36)
[2021-03-31 05:00] VITALS: BP 126/87
[2021-03-31] MEDS: SODIUM CHLOR 0.9% PF (SALINE LOCK) 10ML VIAL/SYR IV SCH ×5 (06:00→21:51)
[2021-03-31] MEDS: GABAPENTIN 300 MG CAP PO SCH ×3 (06:00→21:51)
[2021-03-31] MEDS: ASPirin 81 mg TAB PO SCH (09:38)
[2021-03-31] MEDS: HYDROcodone-ACET 5/325MG TAB PO PRN ×2 (09:38→17:36)
[2021-03-31] MEDS: MULTIPLE VITAMIN TAB PO SCH (09:38)
[2021-03-31] MEDS: DIGOXIN 0.125 MG TAB PO SCH (10:11)
[2021-03-31] MEDS: CARVEDILOL 3.125 MG TAB PO SCH ×2 (10:12→21:51)
[2021-03-31] MEDS: FUROSEMIDE 40 MG TAB PO SCH (11:15)
[2021-03-31] MEDS: TAMSULOSIN HYDROCHLORIDE 0.4 MG CAP PO SCH (17:35)
[2021-03-31 18:19] VITALS: BP 109/62
[2021-03-31] MEDS: TEMAZEPAM 15 MG CAP PO PRN (21:52)
[2021-03-31 22:00] VITALS: BP 112/82
[2021-04-01] MEDS: PIPERACILLIN-TAZOB 3.375GM 100 ML IV SCH ×2 (01:25→09:33)
[2021-04-01 05:00] VITALS: BP 128/84
[2021-04-01] MEDS: SODIUM CHLOR 0.9% PF (SALINE LOCK) 10ML VIAL/SYR IV SCH ×3 (05:53→14:12)
[2021-04-01] MEDS: GABAPENTIN 300 MG CAP PO SCH ×2 (05:54→14:12)
[2021-04-01 09:00] VITALS: BP 135/75
[2021-04-01] MEDS: MULTIPLE VITAMIN TAB PO SCH (09:33)
[2021-04-01] MEDS: DIGOXIN 0.125 MG TAB PO SCH (09:33)
[2021-04-01] MEDS: CARVEDILOL 3.125 MG TAB PO SCH (09:33)
[2021-04-01] MEDS: ASPirin 81 mg TAB PO SCH (09:33)
[2021-04-01] MEDS: FUROSEMIDE 40 MG TAB PO SCH (09:33)
[2021-04-01] MEDS: MORPHINE SULFATE INJECTION 2 MG/ML SYRG IV PRN (10:54)
[2021-04-01 13:00] VITALS: BP 104/63
[2021-04-01] MEDS ORDERED: cefTRIAXone 1GM/50ML D5W 50 ML IV ONE (14:30)
== END 2021-04-01 17:51 | disposition home health service (06) | DRG 503 ==
LOC: ER 14:42 → TELE 22:18 → TELE-CENTR 23:17 → ER 23:17 → TELE-CENTR 23:49
PROVIDERS: ADMIT Nurse Practitioner Family; ATTEND Internal Medicine
PROC: 4A023N7 Measurement of Cardiac Sampling and Pressure, Left Heart, Percutaneous Approach (ICD-10-PCS; 2021-03-27)
PROC: B211YZZ Fluoroscopy of Multiple Coronary Arteries using Other Contrast (ICD-10-PCS; 2021-03-27)
PROC: B215YZZ Fluoroscopy of Left Heart using Other Contrast (ICD-10-PCS; 2021-03-27)
PROC: 0Y6U0Z2 Detachment at Left 3rd Toe, Mid, Open Approach (ICD-10-PCS; principal; 2021-03-29 12:57)
PROC: 05HB33Z Insertion of Infusion Device into Right Basilic Vein, Percutaneous Approach (ICD-10-PCS; 2021-03-30)
PROC: B54MZZA Ultrasonography of Right Upper Extremity Veins, Guidance (ICD-10-PCS; 2021-03-30)
DX: M86.8X7 Other osteomyelitis, ankle and foot (principal); I50.41 Acute combined systolic (congestive) and diastolic (congestive) heart failure; J18.9 Pneumonia, unspecified organism; J44.1 Chronic obstructive pulmonary disease with (acute) exacerbation; E87.3 Alkalosis; D68.69 Other thrombophilia; I42.8 Other cardiomyopathies; M87.9 Osteonecrosis, unspecified; E87.6 Hypokalemia; E83.51 Hypocalcemia; E83.42 Hypomagnesemia; D63.8 Anemia in other chronic diseases classified elsewhere; F17.210 Nicotine dependence, cigarettes, uncomplicated; I48.91 Unspecified atrial fibrillation; L03.032 Cellulitis of left toe; Z20.822 Contact with and (suspected) exposure to COVID-19; L97.529 Non-pressure chronic ulcer of other part of left foot with unspecified severity; M32.9 Systemic lupus erythematosus, unspecified; E87.5 Hyperkalemia; L97.519 Non-pressure chronic ulcer of other part of right foot with unspecified severity; M06.9 Rheumatoid arthritis, unspecified; N40.0 Benign prostatic hyperplasia without lower urinary tract symptoms; R29.6 Repeated falls; I11.0 Hypertensive heart disease with heart failure; Z79.82 Long term (current) use of aspirin; Z80.0 Family history of malignant neoplasm of digestive organs; Z80.42 Family history of malignant neoplasm of prostate; Z79.01 Long term (current) use of anticoagulants; Z80.8 Family history of malignant neoplasm of other organs or systems; Z82.3 Family history of stroke; Z82.49 Family history of ischemic heart disease and other diseases of the circulatory system; Z83.3 Family history of diabetes mellitus; Z86.711 Personal history of pulmonary embolism
CPT/HCPCS: 36415; 36569; 70551; 71045; 71275; 73700; 80048; 80053; 80061; 80307; 81001; 82607; 82746; 82962; 83036; 83735; 83880; 83930; 84100; 84133; 84443; 84484; 85025; 85379; 85610; 85652; 85730; 87205; 87426; 93005; 93306; 93886; 93925; 94640; 95819; 96365; 97110; 97116; 97163; 97530; 99152; G0378; J0690; J0696; J2250; J2405; J2543; J2704; J3480; Q9967

== ENCOUNTER → 2021-05-07 | Outpatient (CLI) | payer OTHER ==
[~2021-05-07] MED LIST: CHOL20007 OR; FELO10TA3 PO; FOLI1TAB6 PO; OMEP20TA PO; ONDA-144 PO; POTA10TA51 PO; TAMS0.4C36 PO; TEMA30CA PO; TIZA4CAP PO
== END | disposition home or self-care (01) ==
LOC: XYW 11:32
PROVIDERS: ATTEND Internal Medicine
DX: I07.1 Rheumatic tricuspid insufficiency (principal); I73.9 Peripheral vascular disease, unspecified; I05.0 Rheumatic mitral stenosis; I35.0 Nonrheumatic aortic (valve) stenosis; I48.91 Unspecified atrial fibrillation
CPT/HCPCS: 93306

== ENCOUNTER 2021-11-12 13:02 | Emergency (ER) | payer OTHER ==
[~2021-11-12] VITALS: Ht 182.9 cm; Wt 66.5 kg
[2021-11-12 13:27] VITALS: BP 141/91
[2021-11-12 14:46] LABS: Basophils # (auto) 0 10 ^3/uL (0-0.2); Eosinophils # (auto) 0 10 ^3/uL (0-0.8); Hemoglobin 12.5 g/dL (13.5-17.5); Monocytes # (auto) 1.2 10 ^3/uL (0-1.3); White Blood Cell 8.9 10^3/uL (4.4-10.8)
[2021-11-12 14:48] LABS: Basophils % (auto) 0.6 % (0.0-2.0); Eosinophils % (auto) 0.3 % (0.0-7.0); Hematocrit 37.2 % (41.0-53.0); Lymphocytes # (auto) 1.5 10 ^3/uL (0.4-5.4); Lymphocytes % (auto) 16.7 % (10.0-50.0); Mean Corpuscular Hemoglobin 34.2 pg (28.0-32.0); Mean Corpuscular Hgb Conc. 33.5 g/dL (32.0-36.0); Mean Corpuscular Volume 101.9 fL (80.0-100.0); Monocytes % (auto) 13.6 % (0.0-12.0); Neutrophils # (auto) 6.1 10 ^3/uL (1.6-8.6); Neutrophils % (auto) 68.8 % (37.0-80.0); Nucleated Red Blood Cells % 0.1 %; Red Blood Cells 3.65 10^6/uL (4.5-5.90); Red Cell Distribution Width 13.2 % (11.8-14.3)
[2021-11-12 14:58] LABS: Albumin 3.6 g/dL (3.4-5.0); Magnesium 2.2 mg/dL (1.6-2.6); Potassium 4.4 mmol/L (3.5-5.1)
[2021-11-12 15:01] LABS: BUN/Creatinine Ratio 22.5; Bilirubin, Total 0.5 mg/dL (0.2-1.0); Total Protein 7.2 g/dL (6.4-8.2)
[2021-11-12 20:09] LABS: Urine Bacteria FEW /hpf (None Seen); Urine Blood Negative /uL (Negative); Urine Mucus FEW (None Seen); Urine Specific Gravity 1.027 (1.001-1.035); Urine WBC 31 /hpf (0 - 3)
[2021-11-12] MEDS ORDERED: NEOMYCIN-BACITRACIN-POLYM UNITDOSE PKG TOP OINT TOP ONE (20:30)
[2021-11-12] MEDS ORDERED: LIDOCAINE 1% (LOCAL ANESTH.) PF 5ml SDV ID ONE (20:30)
[2021-11-12] MEDS ORDERED: LIDOCAINE 1% HCL (LOCAL ANESTH.) INJ 20ML MDV ONE (20:53)
[2021-11-12] MEDS ORDERED: NITR-87 PO (21:24)
== END 2021-11-12 21:51 | disposition home or self-care (01) ==
LOC: ER 13:02
DX: S51.812A Laceration without foreign body of left forearm, initial encounter (principal); S09.90XA Unspecified injury of head, initial encounter; N39.0 Urinary tract infection, site not specified; I10 Essential (primary) hypertension; Z90.89 Acquired absence of other organs; Z79.899 Other long term (current) drug therapy; W01.0XXA Fall on same level from slipping, tripping and stumbling without subsequent striking against object, initial encounter; Y93.89 Activity, other specified; Y99.8 Other external cause status
CPT/HCPCS: 12002; 36415; 70450; 73090; 80053; 81001; 83735; 85025; 93005; 99285; J2001

== ENCOUNTER → 2024-06-07 | Outpatient (CLI) | payer OTHER ==
[~2024-06-07] VITALS: Ht 182.9 cm; Wt 65.8 kg
[~2024-06-07] MED LIST changes: +FELO10TA28 PO; -FELO10TA3 PO; +FOLI-119 PO; -FOLI1TAB6 PO; +NITR-87 PO; +POTA-36 PO; -POTA10TA51 PO; -TAMS0.4C36 PO; +TAMS0.4C39 PO
[2024-06-07] MEDS: REGADENOSON 0.4 MG/5 ML SYRG IV ONE (10:19)
--- NOTE | 2024-06-07 12:26 | DVHSR ---
APPROVED REPORT Exam: Nuclear Stress Test BMI: 0 Stress Test Details HR Max Heart Rate (APMHR): 148.073708 bpm Target HR (85% APMHR): 125.619032 bpm BP ECG Stress ECG Conclusion lvef 56% inferoseptal infarct noted no ischemia noted GI artifact noted NM EXAM: Myocardial Perfusion REST/STRESS Imaging Protocol: Rest Tc-99m/Stress Tc-99m 1 day Resting Data Rest SPECT myocardial perfusion imaging was performed in supine position 60 minutes following the int ravenous injection of 12.5 mCi of Tc-99m Sestamibi. Time of rest injection: 0825 Time of rest imagin Administration Route: IV Administration Site: Right Arm Pharmacologic Stress Pharmacologic stress test was performed by injecting Regadenoson 0.4 mg IV push followed by the intra venous injection of 31 mCi of Tc-99m Sestamibi. Time of stress injection: 1020 Time of stress imagin Administration Route: IV Administration Site: Right Arm Gated Stress SPECT was performed 60 minutes after stress injection. The images were gated to evaluate regional wall motion and calculate left ventricular ejection fracti on. Stress only was performed in the Supine position. Nuclear Conclusion Nuclear Findings: negative for ischemia lvef 56% inferoseptal infarct noted no ischemia noted GI artifact noted
== END | disposition home or self-care (01) ==
LOC: XYW 07:52
PROVIDERS: ATTEND Internal Medicine
DX: R07.9 Chest pain, unspecified (principal)
CPT/HCPCS: 78452; 93017; A9500

== ENCOUNTER 2025-03-24 12:07 | Inpatient (IN) | payer OTHER ==
[~2025-03-24] VITALS: Ht 182.9 cm; Wt 64.0 kg
[2025-03-24 12:54] VITALS: PULSE 85; RESP 14; O2SAT 92
[2025-03-24] MEDS: SODIUM CHLORIDE 0.9% 1,000 ML IV ONE ×3 (13:23→17:43)
--- NOTE | 2025-03-24 13:23 | ED.PDOC ---
GI ASSESSMENT HPI Comments This is a 74 year old male PADMAA presenting to the ED with chief complaint of abdominal pain. Patient reports that he has been experiencing diffuse abdominal pain with associated nausea, vomiting, and black stools since yesterday. Patient relays that he has history of severe GI bleeding about 3 years ago, making him bed bound at the time. Patient denies any diarrhea, chest pain, SOB, dizziness, or fever. Chief Complaint: GI Bleed Time Seen by MD: 12:58 Primary Care Provider: KENRICK Leyva Notes: Nurses Notes, Vp Analysis Notes, Medications, Allergies Allergies: Coded Allergies: Fentanyl (Verified Allergy, Unknown, 06/07/24) Home Meds Active Scripts Nitrofurantoin Monohydrate Mac (Macrobid) 100 Mg Cap, 100 MG PO BID for 5 Days, #10 CAP Prov:DEEPIKA PARKS MD 11/12/21 Reported Medications Folic Acid (Folic Acid) 1 Mg Tab, 1 MG PO DAILY for 30 Days, MG 03/24/21 Omeprazole (Gnp Omeprazole) 20 Mg Tab, 40 MG PO DAILY, TAB 03/24/21 Tizanidine Hydrochloride (Zanaflex) 4 Mg Cap, 4 MG PO Q8HP, CAP 03/24/21 Tamsulosin Hcl (Tamsulosin Hcl) 0.4 Mg Cap, 0.4 MG PO DAILY for 30 Days, MG 03/24/21 Felodipine (Felodipine Er) 10 Mg Tab, 10 MG PO DAILY for 30 Days, MG 03/24/21 Temazepam (Temazepam) 30 Mg Cap, 22.5 MG PO HS, CAP 03/24/21 Ondansetron (Zofran) 4 Mg Tab, 4 MG PO TID, MG 03/24/21 Potassium Chloride (POTASSIUM CHLORIDE CR) 10 Meq Tb, 20 MEQ PO BID, TAB 03/24/21 Cholecalciferol (VITAMIN D3) 2,000 Unit Tab, 5000 UNIT OR QWEEKLY, TAB 03/24/21 Information Source: Patient, Emergency Med Personnel Mode of Arrival: EMS Timing: Days Duration: Since onset Prehospital treatment: None Quality: Sharp Vomitus: Watery Stool: Black Severity: Moderate Recent: None Recent Hx of: None Pain Location: Diffuse Modifying Factors: Nothing Associated sign and symptoms: Nausea, Vomiting, Melena, Abdominal Pain Past Medical History PAST MEDICAL HISTORY: Arthritis, HTN Surgical History: Hernia Repair, Tonsillectomy Family History Family History: Reviewed,noncontributory to illness Social History Smoker: Non-Smoker Alcohol: Denies ETOH Use Drugs: Denies Drug Use Lives In: Home Constitutional: denies: chills, diaphoresis, fatigue, fever, malaise, sweats, weakness, others EENTM: denies: blurred vision, double vision, ear bleeding, ear discharge, ear drainage, ear pain, ear ringing, eye pain, eye redness, hearing loss, mouth pain, mouth swelling, nasal discharge, nose bleeding, nose congestion, nose pain, photophobia, tearing, throat pain, throat swelling, voice changes, others Respiratory: denies: cough, hemoptysis, orthopnea, SOB at rest, shortness of breath, SOB with excertion, stridor, wheezing, others Cardiovascular: denies: chest pain, dizzy spells, diaphoresis, Dyspnea on exertion, edema, irregular heart beat, left arm pain, lightheadedness, palpitations, PND, syncope, others Gastrointestinal: reports: abdominal pain, melena, nausea, vomiting; denies: abdomen distended, blood streaked bowels, constipated, diarrhea, dysphagia, difficulty swallowing, hematemesis, poor appetite, poor fluid intake, rectal bleeding, rectal pain, others Genitourinary: denies: burning, dysuria, flank pain, frequency, hematuria, incontinence, penile discharge, penile sore, pain, testicle pain, testicle swelling, urgency, others Neurological: denies: dizziness, fainting, headache, left sided numbness, left sided weakness, numbness, paresthesia, pre-existing deficit, right sided numbness, right sided weakness, seizure, speech problems, tingling, tremors, weakness, others Musculoskeletal: denies: back pain, gout, joint pain, joint swelling, muscle pain, muscle stiffness, neck pain, others Integumetry: denies: bruises, change in color, change in hair/nails, dryness, laceration, lesions, lumps, rash, wounds, others Allergic/Immunocompromised: denies: Difficulty Healing, Frequent Infections, Hives, Itching, others Hematologic/Lymphatic: denies: anemia, blood clots, easy bleeding, easy bruising, swollen glands, others Endocrine: denies: excessive hunger, excessive sweating, excessive thirst, excessive urination, flushing, intolerance to cold, intolerance to heat, unexplained weight gain, unexplained weight loss, others Psychiatric: denies: anxiety, bipolar disorder, depression, hopeless, panic disorder, schizophrenia, sleepless, suicidal, others All Other Systems: Reviewed and Negative Physical Exam General Appearance: No Apparent Distress, Normal HEENT: Normal ENT Inspection, Pharynx Normal, TMs Normal Neck: Full Range of Motion, Non-Tender, Normal, Normal Inspection Respiratory: Chest Non-Tender, Lungs Clear, No Accessory Muscle Use, No Respiratory Distress, Normal Breath Sounds Cardiovascular: No Edema, No JVD, No Murmur, No Gallop, Normal Peripheral Pulses, Regular Rate/Rhythm Breast Exam: Deferred Gastrointestinal: No Organomegaly, No Pulsatile Mass, Normal Bowel Sounds, Soft, Tenderness (Diffuse abdominal tenderness) Genitalia: Deferred Pelvic: Deferred Rectal: Deferred Extremities: No calf tenderness, Normal capillary refill, Normal inspection, Normal range of motion, Non-tender, No pedal edema Musculoskeletal : Apperance: Normal Neurologic: Alert, manager study II-XII nml as Tested, No Motor Deficits, Normal Affect, Normal Mood, No Sensory Deficits Cerebellar Function: Normal Reflexes: Normal Skin: Dry, Pallor, Warm Lymphatic: No Adenopathy Was a procedure done? Was a procedure done?: No GI differential Dx Differential Diagnosis: Gastroenteritis, GI hemorrhage, Porphyria, UTI, Urolithiasis X-Ray, Labs, Meds, VS Vital Signs Date Time Temp Pulse Resp B/P (MAP) Pulse Ox O2 Delivery O2 Flow Rate FiO2 03/24/25 14:59 79 14 120/73 03/24/25 13:30 85 14 118/79 03/24/25 12:54 85 14 127/74 (91) 92 03/24/25 12:54 85 14 92 Room Air* 0 21 03/24/25 12:10 115 03/24/25 12:07 98.0 80 16 129/82 95 98.0 Lab Test 03/24/25 15:06 03/24/25 14:35 03/24/25 12:54 Range/Units Urine Color Yellow Yellow Urine Clarity Turbid H Clear Urine pH 6.0 5.0-9.0 Urine Specific Tama 1.034 1.001-1.035 Urine Protein 1+ H Negative Urine Ketones 1+ H Negative Urine Blood Trace H Negative /uL Urine Nitrite 2+ H Negative Urine Bilirubin Negative Negative Urine Urobilinogen Normal Negative mg/dL Urine Leukocyte Esterase 3+ Negative /uL Urine RBC 9 0 - 3 /hpf Urine Microscopic WBC 69 H 0-3 /HPF Urine Squamous Epithelial Cells Few <5 /hpf Urine Bacteria Many H None Seen /hpf Urine Mucus Few None Seen Urine Glucose Normal Normal mg/dL Troponin I High Sensitivity 9 9 </=54 ng/L White Blood Count 17.2 H 4.4-10.8 10^3/uL Red Blood Count 4.79 4.5-5.90 10^6/uL Hemoglobin 15.1 13.5-17.5 g/dL Hematocrit 44.4 41.0-53.0 % Mean Corpuscular Volume 92.7 80.0-100.0 fL Mean Corpuscular Hemoglobin 31.5 28.0-32.0 pg Mean Corpuscular Hemoglobin Concent 34.0 32.0-36.0 g/dL Red Cell Distribution Width 13.5 11.8-14.3 % Platelet Count 339 140-450 10^3/uL Mean Platelet Volume 7.3 6.9-10.8 fL Neutrophils (%) (Auto) 87.4 H 37.0-80.0 % Lymphocytes (%) (Auto) 4.0 L 10.0-50.0 % Monocytes (%) (Auto) 8.5 0.0-12.0 % Eosinophils (%) (Auto) 0.0 0.0-7.0 % Basophils (%) (Auto) 0.1 0.0-2.0 % Neutrophils # (Auto) 15.0 H 1.6-8.6 10 ^3/uL Lymphocytes # (Auto) 0.7 0.4-5.4 10 ^3/uL Monocytes # (Auto) 1.5 H 0-1.3 10 ^3/uL Eosinophils # (Auto) 0 0-0.8 10 ^3/uL Basophils # (Auto) 0 0-0.2 10 ^3/uL Nucleated Red Blood Cells 0.0 % Prothrombin Time 10.8 9.3-11.8 sec Prothrombin Time INR 1.02 0.9-1.15 Activated Partial Thromboplast Time 29.9 24.5-34.5 SEC Sodium Level 140 136-145 mmol/L Potassium Level 3.0 L 3.5-5.1 mmol/L Chloride Level 94 L 98-107 mmol/L Carbon Dioxide Level 36 H 20-31 mmol/L Anion Gap 10 5-15 Blood Urea Nitrogen 27 H 9-23 mg/dL Creatinine 0.96 0.700-1.30 mg/dL Glomerular Filtration Rate Calc 83 >90 mL/min BUN/Creatinine Ratio 28.1 H 10.0-20.0 Serum Glucose 150 H 74-106 mg/dL Lactic Acid Level 2.0 0.4-2.0 mmol/L Calcium Level 9.4 8.7-10.4 mg/dL Total Bilirubin 0.4 0.2-1.0 mg/dL Aspartate Amino Transferase (AST) 31 13-40 U/L Alanine Aminotransferase (ALT) 39 7-40 U/L Alkaline Phosphatase 136 H 46-116 U/L B-Type Natriuretic Peptide 67.34 0-100 pg/mL Total Protein 7.8 5.7-8.2 g/dL Albumin 4.6 3.2-4.8 g/dL Lipase 27 12-53 U/L Current Medications Medications (Trade) Dose Ordered Sig/Solange Route Start Time Stop Time Status Last Admin Sodium Chloride 1,000 ml @ 1,000 mls/hr Q1H ONCE IV 03/24/25 12:30 03/24/25 13:29 DC 03/24/25 13:23 Pantoprazole Sodium (Protonix) 80 mg ONCE ONCE IV 03/24/25 12:30 03/24/25 12:31 DC 03/24/25 13:28 Ondansetron HCl (Zofran) 4 mg ONCE ONCE IV 03/24/25 12:30 03/24/25 12:31 DC 03/24/25 13:29 Morphine Sulfate 4 mg ONCE ONCE IV 03/24/25 12:30 03/24/25 12:31 DC 03/24/25 13:30 Time of 1ST Reevaluation: 13:56 Reevaluation 1ST: Unchanged Patient Education/Counseling: Diagnosis, Treatment Family Education/Counseling: No Family Present SEPSIS Sepsis Screen Date sepsis recognized/suspect: Mar 24, 2025 Time Sepsis recognized/suspect: 1207 Recent Procedure: No On Antibiotic Therapy: No Respiratory Rate >20: No Heart Rate >90: No Temp<36 C (96.8 F) or >38.3 C: No SBP <90 or MAP <65 mmHG: No New Acute Mental Status Change: No Is the patient on CPAP, BIPAP,: No Physician Orders Electrocardigram (03/24/25 12:28) Chest Portable (03/24/25 12:28) Ct Ab Pel With Iv Con Only (03/24/25 12:28) Troponin-I Hs (03/24/25 15:28) Morphine Sulfate Injection (03/24/25 16:00) Ondansetron Hcl (Zofran) (03/24/25 16:00) Sodium Chloride 0.9% (03/24/25 16:00) Cefepime 2gm/50ml Ns (Maxipime 2gm/50ml) (03/24/25 16:00) Vancomycin 1gm/250ml Kit (03/24/25 16:00) NS (03/24/25 16:00) Vital Signs Date Time Temp Pulse Resp B/P (MAP) Pulse Ox O2 Delivery O2 Flow Rate FiO2 03/24/25 14:59 79 14 120/73 03/24/25 13:30 85 14 118/79 03/24/25 12:54 85 14 127/74 (91) 92 03/24/25 12:54 85 14 92 Room Air* 0 21 03/24/25 12:10 115 03/24/25 12:07 98.0 80 16 129/82 95 98.0 Laboratory Tests Test 03/24/25 12:54 Lactic Acid Level 2.0 mmol/L (0.4-2.0) White Blood Count 17.2 10^3/uL (4.4-10.8) H Medications Medications Dose Ordered Sig/Solange Route Start Time Stop Time Status Last Admin Dose Admin Morphine Sulfate 4 mg ONCE ONCE IV 03/24/25 12:30 03/24/25 12:31 DC 03/24/25 13:30 Ondansetron HCl 4 mg ONCE ONCE IV 03/24/25 12:30 03/24/25 12:31 DC 03/24/25 13:29 Pantoprazole Sodium 80 mg ONCE ONCE IV 03/24/25 12:30 03/24/25 12:31 DC 03/24/25 13:28 Sodium Chloride 1,000 ml @ 1,000 mls/hr Q1H ONCE IV 03/24/25 12:30 03/24/25 13:29 DC 03/24/25 13:23 Departure 1 Departure Time of Disposition: 15:59 (Patient presented with abdominal pain that was concerning for possible appendicits, gastritis, cholecystitis, colitis, gastroenteritis, sbo, or orther possible surgical emergency. Data: 1. I ordered and reviewed the result of at least 3 labs including a CBC, BMP, and Urinalysis. 2. I independently interpreted the following tests: CT Abdomen and Pelvis is concerning for chronic pancreatitis .Risk:This patient has a high risk of morbidity due to further diagnostic testing or treatment and may suffer from an acute abdominal process disorder. Workup reveals intractable abdominal pain, likely chronic pancreatitis, concern for GI bleed, and suspected sepsis and patient should be admitted for further workup. and possible expert consultation. ) Impression: Primary Impression: Suspected sepsis Additional Impressions: Chronic pancreatitis Intractable abdominal pain Disposition: ADMITTED INPATIENT Admit to: Tele Condition: Guarded Critical Care Note Critical Care Time?: Yes Critical care comment: Intractable abdominal pain Authorized and Performed by: Zbe Jay MD Total critical care time: Approximately 39 minutes Due to a high probability of clinically significant, life threatening deterioration, the patient required my highest level of preparedness to intervene emergently and I personally spent this critical care time directly and personally managing the patient. This critical care time included obtaining a history; examining the patient; pulse oximetry; ordering and review of studies; arranging urgent treatment with development of a management plan; evaluation of patient's response to treatment; frequent reassessment; and, discussions with other providers. This critical care time was performed to assess and manage the high probability of imminent, life-threatening deterioration that could result in multi-organ failure. It was exclusive of separately billable procedures and treating other patients and teaching time. Please see my other sections and the rest of the note for further information on patient assessment and treatment. Stability Stability form required: No Heart Score Heart Score: Heart Score Response (Comments) Value History N/A 0 EKG N/A 0 Age N/A 0 Risk Factors N/A 0 Troponin N/A 0 Total 0 I personally scribed for ZEB JAY MD ([email or web address]) on 03/24/25 at 13:23. Electronically submitted by Beau Schmidt ([email or web address]). ZEB JAY MD Mar 24, 2025 13:23
[2025-03-24] MEDS: PANTOPRAZOLE 40 MG/10 ML VIAL INJ IV ONE (13:28)
[2025-03-24] MEDS: ONDANSETRON HCL 4 MG/2 ML VIAL IV ONE ×2 (13:29→16:30)
[2025-03-24] MEDS: MORPHINE SULFATE 4 MG/ML SYR/VIAL IV ONE ×2 (13:30→16:31)
[2025-03-24 13:36] LABS: Hematocrit 44.4 % (41.0-53.0); Hemoglobin 15.1 g/dL (13.5-17.5); Mean Corpuscular Hemoglobin 31.5 pg (28.0-32.0); Mean Corpuscular Volume 92.7 fL (80.0-100.0); Nucleated Red Blood Cells % 0.0 %
[2025-03-24 13:51] LABS: Alanine Aminotransferase 39 U/L (7-40); Albumin 4.6 g/dL (3.2-4.8); Anion Gap 10 (5-15); BUN/Creatinine Ratio 28.1 (10.0-20.0); Bilirubin, Total 0.4 mg/dL (0.2-1.0); Calcium 9.4 mg/dL (8.7-10.4); INR 1.02 (0.9-1.15); Lipase 27 U/L (12-53); Partial Thromboplastin Time 29.9 SEC (24.5-34.5); Prothrombin Time 10.8 sec (9.3-11.8); Sodium 140 mmol/L (136-145); Total Protein 7.8 g/dL (5.7-8.2)
[2025-03-24 13:54] LABS: Alkaline Phosphatase 136 U/L (46-116); Blood Urea Nitrogen 27 mg/dL (9-23); Carbon Dioxide 36 mmol/L (20-31); Chloride 94 mmol/L (98-107); Glucose 150 mg/dL (74-106); Potassium 3.0 mmol/L (3.5-5.1)
--- NOTE | 2025-03-24 14:05 | DVH ---
INDICATION: weakness TECHNIQUE: Frontal view of the chest. COMPARISON: CT ANGIO CHEST on DOS: 02/01/25, CT CHEST WO on DOS: 01/04/25, CHEST PORTABLE on DOS: 03/30/21, CHEST PORTABLE on DOS: 03/27/21 FINDINGS: Chronic appearing ununited fracture of the left proximal humerus. The heart and mediastinal contours are grossly unremarkable. There is no evidence of pleural disease. The lungs are clear. The bony structures of the chest are intact without fracture. IMPRESSION: 1. No evidence of acute disease.
[2025-03-24] MEDS: IOHEXOL 300 MG/ML 100ML BOTTLE IJ ONE (14:20)
--- NOTE | 2025-03-24 14:55 | DVH ---
CLINICAL HISTORY: abdominal pain, cf gi bleed TECHNIQUE: CT of the abdomen and pelvis was performed with IV contrast. This exam was performed according to our departmental dose optimization program. Up-to-date CT equipment and radiation dose reduction techniques are utilized as appropriate. CTDI 8.7 DLP 538 COMPARISON: None FINDINGS: Abdomen/Pelvis: The spleen, adrenal glands, liver, and prostate gland are unremarkable. There are several left renal stones measuring up to 3 mm. There is a left renal cyst. Subcentimeter hypodense lesions in both kidneys are too small to adequately characterize. A 10 mm gallbladder fundal intraluminal lesion measuring fat attenuation. The pancreatic ductal dilatation measuring up to 5 mm. There are scattered pancreatic parenchymal calcifications mostly at the pancreatic head. The abdominal aorta is normal in caliber with [id number] duties atherosclerotic calcifications. There is no free intraperitoneal air or fluid. There is no enlarged abdominal or pelvic lymph node. There is no bowel wall thickening or dilatation. The appendix is normal. Other: The imaged lower thorax demonstrates 3-vessel coronary artery calcifications. There is mild atelectasis at both lung bases. No acute osseous abnormality is evident. IMPRESSION: No acute CT abnormality in the abdomen/pelvis. Pancreatic ductal dilatation with scattered pancreatic parenchymal calcifications mostly in the pancreatic head, likely chronic pancreatitis. Nonobstructing left renal calculi. 10 mm gallbladder lipoma. 3-vessel coronary artery calcifications.
[2025-03-24 15:33] LABS: Urine Protein, UAD 1+ (Negative)
[2025-03-24] MEDS: CEFEPIME 2GM/50ML NS 50 ML IV ONE (16:00)
[2025-03-24] MEDS: VANCOMYCIN 1GM/250ML KIT 250 ML IV ONE (16:31)
[2025-03-24] MEDS ORDERED: HYDROmorphone HCL 2 MG/ML VL/or syr IV PRN (17:15)
[2025-03-24] MEDS: PANTOPRAZOLE 40mg/50ML NS AE 50 ML IV SCH (17:15)
[2025-03-24] MEDS ORDERED: DOCUSATE SOD 100 MG CAP PO PRN (17:15)
[2025-03-24] MEDS ORDERED: POLYETHYLENE GLYCOL 17 GM PWDR PO PRN (17:15)
[2025-03-24] MEDS: SODIUM CHLORIDE 0.9% 1,000 ML IV SCH (17:15)
[2025-03-24] MEDS ORDERED: NITROGLYCERIN 0.4 MG SL TAB SL PRN (17:15)
[2025-03-24] MEDS: POTASSIUM EFFERVESENT TAB 25 MEQ PO ONE (17:20)
--- NOTE | 2025-03-24 17:33 | DVHHP2 ---
History of Present Illness Reason for Visit: abd pain gi bleed History of Present Illness 74-year-old male with past medical history significant for prior upper GI bleed (1.5 years ago), arthritis, hypertension, severe constipation, chronic pain, COPD, prior hernia repair, tonsillectomy, and left shoulder surgery. He presents with recurrent epigastric pain, dark malodorous stool, and one episode of coffee-ground emesis. He denies chest pain or shortness of breath but reports having a subjective fever. His power of veneer matcher is Katie ([phone]), who is currently at the bedside. He is DNR per POA. Patient and caregiver report that in January 2025, he had a colonoscopy that was not completed due to hal dequate bowel prep, but an EGD performed by the GI group in [place] revealed a lesion in his stomach. In the ED, labs show hemoglobin 17.2, potassium 3.0, chloride 94, BUN 27, CO2 36, lactate 2.0, BNP 61.34. Troponins were negative x2. UA shows ketones, small nitrates, and bacteria. Chest x-ray was unremarkable. CT abdomen/pelvis revealed findings of chronic pancreatitis, a left kidney stone, and pancreatic duct calcification. No signs of active obstruction. CT also showed coronary calcifications and incidental note of glaucoma. Patient denies alcohol or drug use. He will be admitted for acute upper GI bleeding. Plan includes GI consult, IV fluids, empiric antibiotics (Rocephin and Flagyl), pain management with Dilaudid, and bowel regimen as needed. will admit to tele Past Medical History See HPI above Past Surgical History See HPI above Family History Reviewed, non-contributory to the management of this case. Past Social History Patient does smoke by history no alcohol or drug use Review of Systems Constitutional: No: Fever, Chills, Sweats, Weakness, Malaise, Other Eyes: No: Pain, Vision change, Conjunctivae inflammation, Eyelid inflammation, Other, Redness ENT: No: Ear pain, Ear discharge, Nose pain, Nose discharge, Nose congestion, Mouth pain, Mouth swelling, Throat pain, Throat swelling, Other Respiratory: No: Cough, Dry, Shortness of breath, SOB with excertion, Wheezing, Hemoptysis, Pleuritic Pain, Sputum, Wheezing, Other Cardiovascular: No: Chest Pain, Palpitations, Orthopnea, Paroxysmal Noc. Dyspnea, Edema, Lt Headedness, Other Gastrointestinal: Abdominal Pain, Melena; No: Nausea, Vomiting, Diarrhea, Constipation, Hematochezia, Other Genitourinary: No Dysuria, No Frequency, No Incontinence, No Hematuria, No Retention, No Other Musculoskeletal: No: other, neck pain, shoulder pain, arm pain, back pain, hand pain, leg pain, foot pain Skin: No: Rash, Lesions, Jaundice, Bruising, Other Neurological: No: Weakness, Numbness, Incoordination, Change in speech, Confusion, Seizures, Other Allergies: Coded Allergies: Fentanyl (Verified Allergy, Unknown, 06/07/24) Exam Vital Signs Vital Signs Date Time Temp Pulse Resp B/P (MAP) Pulse Ox O2 Delivery O2 Flow Rate FiO2 03/24/25 17:20 98.9 72 14 121/69 (86) 96 98.9 03/24/25 12:54 Room Air* 0 21 General Appearance: Alert, Oriented X3, Cooperative, No acute distress HEENT: Atraumatic, PERRLA, EOMI, Mucous membr. moist/pink Respiratory: Clear to auscultation, Normal air movement Cardiovascular: Regular rate, Normal S1, Normal S2, No murmurs Abdominal: Normal bowel sounds, Soft, No hepatospenomegaly, No masses, Other (Mild abdominal tenderness) Extremities: No clubbing, No cyanosis, No edema, Normal pulses, No tenderness/swelling Skin: No rashes, No breakdown, No significant lesion Neuro: Other (Neuro nonfocal) Psych/Mental Status: Mental status NL, Mood NL Labs/Xrays CT scan shows pancreatic duct with chronic pancreatitis left kidney stone nonobstructing three-vessel coronary and lipoma I reviewed labs, imaging CT scan abdomen pelvis, EKG and all diagnostic studies on this patient from ED records and the medical chart Labs Test 03/24/25 16:16 03/24/25 15:06 03/24/25 12:54 Range/Units Troponin I High Sensitivity 12 </=54 ng/L Urine Color Yellow Yellow Urine Clarity Turbid H Clear Urine pH 6.0 5.0-9.0 Urine Specific [place] 1.034 1.001-1.035 Urine Protein 1+ H Negative Urine Ketones 1+ H Negative Urine Blood Trace H Negative /uL Urine Nitrite 2+ H Negative Urine Bilirubin Negative Negative Urine Urobilinogen Normal Negative mg/dL Urine Leukocyte Esterase 3+ Negative /uL Urine RBC 9 0 - 3 /hpf Urine Microscopic WBC 69 H 0-3 /HPF Urine Squamous Epithelial Cells Few <5 /hpf Urine Bacteria Many H None Seen /hpf Urine Mucus Few None Seen Urine Glucose Normal Normal mg/dL White Blood Count 17.2 H 4.4-10.8 10^3/uL Red Blood Count 4.79 4.5-5.90 10^6/uL Hemoglobin 15.1 13.5-17.5 g/dL Hematocrit 44.4 41.0-53.0 % Mean Corpuscular Volume 92.7 80.0-100.0 fL Mean Corpuscular Hemoglobin 31.5 28.0-32.0 pg Mean Corpuscular Hemoglobin Concent 34.0 32.0-36.0 g/dL Red Cell Distribution Width 13.5 11.8-14.3 % Platelet Count 339 140-450 10^3/uL Mean Platelet Volume 7.3 6.9-10.8 fL Neutrophils (%) (Auto) 87.4 H 37.0-80.0 % Lymphocytes (%) (Auto) 4.0 L 10.0-50.0 % Monocytes (%) (Auto) 8.5 0.0-12.0 % Eosinophils (%) (Auto) 0.0 0.0-7.0 % Basophils (%) (Auto) 0.1 0.0-2.0 % Neutrophils # (Auto) 15.0 H 1.6-8.6 10 ^3/uL Lymphocytes # (Auto) 0.7 0.4-5.4 10 ^3/uL Monocytes # (Auto) 1.5 H 0-1.3 10 ^3/uL Eosinophils # (Auto) 0 0-0.8 10 ^3/uL Basophils # (Auto) 0 0-0.2 10 ^3/uL Nucleated Red Blood Cells 0.0 % Prothrombin Time 10.8 9.3-11.8 sec Prothrombin Time INR 1.02 0.9-1.15 Activated Partial Thromboplast Time 29.9 24.5-34.5 SEC Sodium Level 140 136-145 mmol/L Potassium Level 3.0 L 3.5-5.1 mmol/L Chloride Level 94 L 98-107 mmol/L Carbon Dioxide Level 36 H 20-31 mmol/L Anion Gap 10 5-15 Blood Urea Nitrogen 27 H 9-23 mg/dL Creatinine 0.96 0.700-1.30 mg/dL Glomerular Filtration Rate Calc 83 >90 mL/min BUN/Creatinine Ratio 28.1 H 10.0-20.0 Serum Glucose 150 H 74-106 mg/dL Lactic Acid Level 2.0 0.4-2.0 mmol/L Calcium Level 9.4 8.7-10.4 mg/dL Total Bilirubin 0.4 0.2-1.0 mg/dL Aspartate Amino Transferase (AST) 31 13-40 U/L Alanine Aminotransferase (ALT) 39 7-40 U/L Alkaline Phosphatase 136 H 46-116 U/L B-Type Natriuretic Peptide 67.34 0-100 pg/mL Total Protein 7.8 5.7-8.2 g/dL Albumin 4.6 3.2-4.8 g/dL Lipase 27 12-53 U/L SEPSIS Sepsis Screen Date sepsis recognized/suspect: Mar 24, 2025 Time Sepsis recognized/suspect: 1253 Recent Procedure: No On Antibiotic Therapy: No Respiratory Rate >20: No Heart Rate >90: No Temp<36 C (96.8 F) or >38.3 C: No SBP <90 or MAP <65 mmHG: No New Acute Mental Status Change: No Is the patient on CPAP, BIPAP,: No Physician Orders Electrocardigram (03/24/25 12:28) Chest Portable (03/24/25 12:28) Ct Ab Pel With Iv Con Only (03/24/25 12:28) Cefepime 2gm/50ml Ns (Maxipime 2gm/50ml) (03/24/25 16:00) Blood Culture (03/24/25 16:40) Tamsulosin Hydrochloride (Flomax) (03/25/25 10:00) Vital Signs Date Time Temp Pulse Resp B/P (MAP) Pulse Ox O2 Delivery O2 Flow Rate FiO2 03/24/25 17:20 98.9 72 14 121/69 (86) 96 98.9 03/24/25 16:31 82 16 121/69 03/24/25 14:59 79 14 120/73 03/24/25 13:30 85 14 118/79 03/24/25 12:54 85 14 127/74 (91) 92 03/24/25 12:54 85 14 92 Room Air* 0 21 03/24/25 12:10 115 03/24/25 12:07 98.0 80 16 129/82 95 98.0 Laboratory Tests Test 03/24/25 12:54 Lactic Acid Level 2.0 mmol/L (0.4-2.0) White Blood Count 17.2 10^3/uL (4.4-10.8) H Medications Medications Dose Ordered Sig/Solange Route Start Time Stop Time Status Last Admin Dose Admin Morphine Sulfate 4 mg ONCE ONCE IV 03/24/25 12:30 03/24/25 12:31 DC 03/24/25 13:30 4 MG Morphine Sulfate 4 mg ONCE ONCE IV 03/24/25 16:00 03/24/25 16:04 DC 03/24/25 16:31 4 MG Ondansetron HCl 4 mg ONCE ONCE IV 03/24/25 12:30 03/24/25 12:31 DC 03/24/25 13:29 4 MG Ondansetron HCl 4 mg ONCE ONCE IV 03/24/25 16:00 03/24/25 16:04 DC 03/24/25 16:30 4 MG Pantoprazole Sodium 80 mg ONCE ONCE IV 03/24/25 12:30 03/24/25 12:31 DC 03/24/25 13:28 80 MG Sodium Chloride 1,000 ml @ 1,000 mls/hr Q1H ONCE IV 03/24/25 12:30 03/24/25 13:29 DC 03/24/25 13:23 1,000 MLS/HR Sodium Chloride 1,000 ml @ 1,000 mls/hr Q1H ONCE IV 03/24/25 16:00 03/24/25 16:59 DC 03/24/25 16:25 1,000 MLS/HR Vancomycin HCl 250 ml @ 250 mls/hr ONCE ONCE IV 03/24/25 16:00 03/24/25 16:59 DC 03/24/25 16:31 250 MLS/HR Assessment/Plan Assessment/Plan 74-year-old male with history of GI bleed, presenting with melena and coffee ground emesis, now admitted for evaluation and management of presumed upper GI bleed with history of prior gastric lesion and chronic constipation. Acute upper GI bleed with coffee ground emesis GI consult for endoscopy Monitor H&H, repeat if symptomatic Type and screen IV fluids Protonix bolus and drip Hold NSAIDs ordered Dilaudid PRN for pain ordered ppx flagyl and ceftriaxone for now acute leukocytosis cont ceftriaxone and flagyl History of gastric lesion (EGD Jan 2025) Known from prior scope; needs repeat EGD Document lesion location if known from records Chronic pancreatitis with calcified pancreatic duct CT findings consistent No acute intervention unless symptomatic Monitor lipase if pain worsens Electrolyte disturbances: hypokalemia (K 3.0), hypochloremia (Cl 94) Replete potassium orally Monitor BMP daily cont ivf for now acute COPD without exacerbation Monitor respiratory status Continue home inhalers if used Encourage incentive spirometry Chronic constipation Liquid diet until EGD Hold oral laxatives until GI clears Rectal suppository PRN if needed Left kidney stone (non-obstructive)/acute cystitis Incidental on CT Urology referral outpatient if symptomatic cont ceftriaxone Hypertension Continue home antihypertensives if stable BP DNR status DNR confirmed with ELSA Wilson ([phone]) Goals of care acknowledged tobacco dependence i counseled the patient for 6 min about smoking suggestions pt accepted nicotine patch and tobacco education smoking code [id number] chronic problems GI bleed (prior, 2022) Hypertension COPD Chronic pain Severe constipation Arthritis History of hernia repair Left shoulder surgery Tonsillectomy Chronic pancreatitis DNR status FEN / PPx Fluids: IV NS Electrolytes: Replete K+ as needed, daily BMP Nutrition: clear liquid DVT Prophylaxis: SCDs no dvt ppx since acute bleeding GI Prophylaxis: IV PPI (Pantoprazole iv drip) Disposition Admit to medicine service. GI consult Plan discussed with: Patient, Other (elsa vickers [phone] both discussed DNR status) My Orders Orders - KELSEA CARLOS DNP Procedure Category Date Status Time Tamsulosin PHA 03/25/25 Verified Hydrochloride (Flomax) 10:00 Date of Service: Mar 24, 2025 Billing Provider: KELSEA CARLOS DNP Common Visit Codes: [id number] INP/OBS CARE (HIGH) KELSEA CARLOS DNP Mar 24, 2025 17:33
[2025-03-24] MEDS: HYDROmorphone HCL 2 MG/ML VL/or syr IV PRN (18:33)
[2025-03-24 18:50] VITALS: BP 133/75; PULSE 83; RESP 18; TEMP 98.6; O2SAT 95
[2025-03-24 19:01] LABS: Hematocrit 38.4 % (41.0-53.0); Hemoglobin 12.5 g/dL (13.5-17.5)
[2025-03-24 19:16] LABS: Magnesium 1.7 mg/dL (1.6-2.6)
[2025-03-24 19:58] VITALS: BP 133/75; PULSE 83; RESP 18; TEMP 98.6; O2SAT 95
[2025-03-24 20:00] VITALS: PULSE 77; PULSE 83; RESP 18
[2025-03-24] MEDS: NICOTINE 14 MG/24HR TOPICAL PATCH TD ONE (20:12)
[2025-03-24 21:00] VITALS: BP 130/73; PULSE 80; RESP 18; TEMP 98.5; O2SAT 97
[2025-03-24] MEDS: PANTOPRAZOLE 80 MG in SODIUM CHL 0.9% 100 ML IV ONE (21:46)
[2025-03-24] MEDS: POLYETHYLENE GLYCOL 17 GM PWDR PO ONE (21:46)
[2025-03-25] VITALS (8 sets, daily range): BP systolic 113–155; BP diastolic 47–78; PULSE 45–66; RESP 18–20; TEMP 97.9–98.9; O2SAT 94–96
[2025-03-25 00:38] LABS: Hematocrit 34.6 % (41.0-53.0); Hemoglobin 11.6 g/dL (13.5-17.5)
[2025-03-25] MEDS: ONDANSETRON HCL 4 MG/2 ML VIAL IV PRN (03:34)
[2025-03-25 06:53] LABS: Hematocrit 36.4 % (41.0-53.0); Hemoglobin 12.2 g/dL (13.5-17.5); Mean Corpuscular Hemoglobin 31.5 pg (28.0-32.0); Mean Corpuscular Volume 94.2 fL (80.0-100.0); Nucleated Red Blood Cells % 0.1 %
[2025-03-25 07:08] LABS: Alanine Aminotransferase 24 U/L (7-40); Alkaline Phosphatase 101 U/L (46-116); Anion Gap 10 (5-15); BUN/Creatinine Ratio 22.8 (10.0-20.0); Blood Urea Nitrogen 18 mg/dL (9-23); Carbon Dioxide 28 mmol/L (20-31); Chloride 103 mmol/L (98-107); Glucose 103 mg/dL (74-106); Potassium 3.6 mmol/L (3.5-5.1); Sodium 141 mmol/L (136-145); Total Protein 6.2 g/dL (5.7-8.2)
[2025-03-25 07:09] LABS: Albumin 3.7 g/dL (3.2-4.8); Bilirubin, Total 0.4 mg/dL (0.2-1.0)
[2025-03-25 07:11] LABS: Calcium 8.2 mg/dL (8.7-10.4)
[2025-03-25] MEDS: TAMSULOSIN HYDROCHLORIDE 0.4 MG CAP PO SCH (09:46)
[2025-03-25] MEDS: FOLIC ACID 1 MG TAB PO SCH (09:46)
[2025-03-25] MEDS ORDERED: MORP15TA PO (10:01)
[2025-03-25] MEDS ORDERED: DOCU-94 PO (10:01)
[2025-03-25] MEDS ORDERED: ESZO2TAB24 PO (10:01)
[2025-03-25] MEDS ORDERED: HYDR-4798 PO (10:01)
[2025-03-25] MEDS ORDERED: ALPR0.5T PO (10:01)
[2025-03-25] MEDS ORDERED: FERR325T20 PO (10:01)
[2025-03-25] MEDS ORDERED: SENN-58 PO (10:01)
[2025-03-25] MEDS ORDERED: TRAZ-181 PO (10:01)
[2025-03-25 12:29] LABS: Hematocrit 34.5 % (41.0-53.0); Hemoglobin 11.5 g/dL (13.5-17.5)
[2025-03-25] MEDS: HYDROcodone-ACET 5/325MG TAB PO ONE (12:59)
--- NOTE | 2025-03-25 13:41 | DVHINCON2 ---
Date of service: Mar 25, 2025 History of Present Illness Per HPI - "74-year-old male with past medical history significant for prior upper GI bleed (1.5 years ago), arthritis, hypertension, severe constipation, chronic pain, COPD, prior hernia repair, tonsillectomy, and left shoulder surgery. He presents with recurrent epigastric pain, dark malodorous stool, and one episode of coffee-ground emesis. He denies chest pain or shortness of breath but reports having a subjective fever. His power of car park attendant is Katie ([phone]), who is currently at the bedside. He is DNR per POA. Patient and caregiver report that in January 2025, he had a colonoscopy that was not completed due to inadequate bowel prep, but an EGD performed by the GI group in [place] revealed a lesion in his stomach. In the ED, labs show hemoglobin 17.2, potassium 3.0, chloride 94, BUN 27, CO2 36, lactate 2.0, BNP 61.34. Troponins were negative x2. UA shows ketones, small nitrates, and bacteria. Chest x-ray was unremarkable. CT abdomen/pelvis revealed findings of chronic pancreatitis, a left kidney stone, and pancreatic duct calcification. No signs of active obstruction. CT also showed coronary calcifications and incidental note of glaucoma. Patient denies alcohol or drug use. He will be admitted for acute upper GI bleeding. Plan includes GI consult, IV fluids, empiric antibiotics (Rocephin and Flagyl), pain management with Dilaudid, and bowel regimen as needed. will admit to tele" He reports CGE prior to admission, ??melena, has constipation and no diarrhea. No active GIB noted since admission. Pt is DNR Past Medical History Reviewed Past Surgical History Reviewed Family History: Colon cancer G8 MOTHER Diabetes mellitus G8 MOTHER FH: prostate cancer G8 FATHER FH: skin cancer G8 MOTHER G8 FATHER FH: stroke G8 MOTHER G8 FATHER Hypertension G8 FATHER Allergies: Coded Allergies: Fentanyl (Verified Allergy, Unknown, 06/07/24) Home Meds Active Scripts Nitrofurantoin Monohydrate Mac (Macrobid) 100 Mg Cap, 100 MG PO BID for 5 Days, #10 CAP Prov:DEEPIKA PARKS MD 11/12/21 Reported Medications Eszopiclone (Lunesta) 2 Mg Tab, 1 TAB PO QPM, #30 TAB 2 Refills 03/25/25 Trazodone HCl (Trazodone Hydrochloride) 50 Mg Tab, 150 MG PO BID, TAB 03/25/25 Morphine Sulfate (Morphine Sulfate) 15 Mg Tab, 1 TAB PO BID, #60 TAB 03/25/25 Ferrous Sulfate (Ferosul) 325 Mg Tab, 325 MG PO, TAB 03/25/25 Alprazolam (Xanax) 0.5 Mg Tb, 1 TAB PO TID, #90 TAB 03/25/25 Docusate Sodium (Colace) 100 Mg Cap, 1 CAP PO DAILY, #30 CAP 03/25/25 Senna (Senokot) 8.6 Mg Tab, 2 TAB PO BID, #40 TAB 03/25/25 Hydrocodone-Acetaminophen (Hydrocodone Bitartrate/AC 10-325 mg) 1 Tab Tab, 1 TAB PO Q4HP, TAB 03/25/25 Folic Acid (Folic Acid) 1 Mg Tab, 1 MG PO DAILY for 30 Days, MG 03/24/21 Omeprazole (Gnp Omeprazole) 20 Mg Tab, 40 MG PO DAILY, TAB 03/24/21 Tizanidine Hydrochloride (Zanaflex) 4 Mg Cap, 4 MG PO Q8HP, CAP 03/24/21 Tamsulosin Hcl (Tamsulosin Hcl) 0.4 Mg Cap, 0.4 MG PO DAILY for 30 Days, MG 03/24/21 Felodipine (Felodipine Er) 10 Mg Tab, 10 MG PO DAILY for 30 Days, MG 03/24/21 Temazepam (Temazepam) 30 Mg Cap, 22.5 MG PO HS, CAP 03/24/21 Ondansetron (Zofran) 4 Mg Tab, 4 MG PO TID, MG 03/24/21 Potassium Chloride (POTASSIUM CHLORIDE CR) 10 Meq Tb, 20 MEQ PO BID, TAB 03/24/21 Cholecalciferol (VITAMIN D3) 2,000 Unit Tab, 5000 UNIT OR QWEEKLY, TAB 03/24/21 Current Medications Current Medications Medications (Trade) Dose Ordered Sig/Solange Route PRN Reason Start Time Stop Time Status Last Admin Tamsulosin HCl (Flomax) 0.4 mg DAILY PO 03/25/25 10:00 03/25/25 09:46 Folic Acid 1 mg DAILY PO 03/25/25 10:00 03/25/25 09:46 Sodium Chloride 1,000 ml @ 100 mls/hr Q10H IV 03/24/25 17:15 03/25/25 13:22 Ondansetron HCl (Zofran) 4 mg Q4HP PRN IV NAUSEA / VOMITING 03/24/25 17:15 03/25/25 12:44 DC 03/25/25 09:44 Docusate Sodium (Colace Capsule) 100 mg BIDPRN PRN PO FOR CONSTIPATION 03/24/25 17:15 Nitroglycerin (Ntrostat Sublingual) 0.4 mg Q5MINP PRN SL FOR CHEST PAIN 03/24/25 17:15 03/25/25 12:44 DC Ceftriaxone Sodium 50 ml @ 100 mls/hr DAILY@09 IV 03/25/25 09:00 03/25/25 09:45 Metronidazole 100 ml @ 100 mls/hr Q8HR IV 03/25/25 06:00 03/25/25 12:48 Pantoprazole Sodium 50 ml @ 10 mls/hr Q5H IV 03/24/25 17:15 03/25/25 09:45 Hydromorphone HCl (Dilaudid Injection) 0.25 mg Q3HPRN PRN IV SEVERE PAIN (7-10 PAIN SCALE) 03/24/25 17:15 03/25/25 12:44 DC 03/25/25 09:48 Hydromorphone HCl (Dilaudid Injection) 0.5 mg Q2HPRN PRN IV SEVERE PAIN (7-10 PAIN SCALE) 03/24/25 17:15 03/25/25 12:44 DC Polyethylene Glycol (Miralax 17GM Powder) 17 gm DAILYPRN PRN PO FOR CONSTIPATION 03/24/25 17:15 Nicotine (Nicoderm 14MG/ 24HR) 1 patch DAILY@1700 TD 03/25/25 17:00 Review of Systems 14 point ROS negative except mentioned above Vital Signs Vital Signs Date Time Temp Pulse Resp B/P (MAP) Pulse Ox O2 Delivery O2 Flow Rate FiO2 03/25/25 12:48 98.0 63 19 118/47 (70) 95 98.0 03/24/25 20:00 Room Air* 0 21 Physical Exam GE; in no acute distress CVS: S1S2+ Lungs: clear Abdomen: soft, non-tender, non-distended, BS+ Labs/Diagnostic Data Labs Test 03/25/25 11:46 03/25/25 06:05 03/24/25 18:23 03/24/25 16:16 Range/Units Hemoglobin 11.5 L 13.5-17.5 g/dL Hematocrit 34.5 L 41.0-53.0 % White Blood Count 15.1 H 4.4-10.8 10^3/uL Red Blood Count 3.87 L 4.5-5.90 10^6/uL Mean Corpuscular Volume 94.2 80.0-100.0 fL Mean Corpuscular Hemoglobin 31.5 28.0-32.0 pg Mean Corpuscular Hemoglobin Concent 33.4 32.0-36.0 g/dL Red Cell Distribution Width 13.4 11.8-14.3 % Platelet Count 250 140-450 10^3/uL Mean Platelet Volume 7.4 6.9-10.8 fL Neutrophils (%) (Auto) 81.1 H 37.0-80.0 % Lymphocytes (%) (Auto) 7.1 L 10.0-50.0 % Monocytes (%) (Auto) 11.6 0.0-12.0 % Eosinophils (%) (Auto) 0.0 0.0-7.0 % Basophils (%) (Auto) 0.2 0.0-2.0 % Neutrophils # (Auto) 12.3 H 1.6-8.6 10 ^3/uL Lymphocytes # (Auto) 1.1 0.4-5.4 10 ^3/uL Monocytes # (Auto) 1.8 H 0-1.3 10 ^3/uL Eosinophils # (Auto) 0 0-0.8 10 ^3/uL Basophils # (Auto) 0 0-0.2 10 ^3/uL Nucleated Red Blood Cells 0.1 % Sodium Level 141 136-145 mmol/L Potassium Level 3.6 3.5-5.1 mmol/L Chloride Level 103 98-107 mmol/L Carbon Dioxide Level 28 20-31 mmol/L Anion Gap 10 5-15 Blood Urea Nitrogen 18 9-23 mg/dL Creatinine 0.79 0.700-1.30 mg/dL Glomerular Filtration Rate Calc 94 >90 mL/min BUN/Creatinine Ratio 22.8 H 10.0-20.0 Serum Glucose 103 74-106 mg/dL Calcium Level 8.2 L 8.7-10.4 mg/dL Total Bilirubin 0.4 0.2-1.0 mg/dL Aspartate Amino Transferase (AST) 20 13-40 U/L Alanine Aminotransferase (ALT) 24 7-40 U/L Alkaline Phosphatase 101 46-116 U/L Total Protein 6.2 5.7-8.2 g/dL Albumin 3.7 3.2-4.8 g/dL Phosphorus Level 1.9 L 2.4-5.1 mg/dL Magnesium Level 1.7 1.6-2.6 mg/dL Troponin I High Sensitivity 12 </=54 ng/L Test 03/24/25 15:06 03/24/25 12:54 Range/Units Urine Color Yellow Yellow Urine Clarity Turbid H Clear Urine pH 6.0 5.0-9.0 Urine Specific [place] 1.034 1.001-1.035 Urine Protein 1+ H Negative Urine Ketones 1+ H Negative Urine Blood Trace H Negative /uL Urine Nitrite 2+ H Negative Urine Bilirubin Negative Negative Urine Urobilinogen Normal Negative mg/dL Urine Leukocyte Esterase 3+ Negative /uL Urine RBC 9 0 - 3 /hpf Urine Microscopic WBC 69 H 0-3 /HPF Urine Squamous Epithelial Cells Few <5 /hpf Urine Bacteria Many H None Seen /hpf Urine Mucus Few None Seen Urine Glucose Normal Normal mg/dL Prothrombin Time 10.8 9.3-11.8 sec Prothrombin Time INR 1.02 0.9-1.15 Activated Partial Thromboplast Time 29.9 24.5-34.5 SEC Lactic Acid Level 2.0 0.4-2.0 mmol/L B-Type Natriuretic Peptide 67.34 0-100 pg/mL Lipase 27 12-53 U/L Assessment #CGE, ??melena #Anemia #Chronic pancreatitis #Abdominal pain, likely 2/2 to the above. Monitor Hb. Drop in Hb likely 2/2 to hemodilution. Close monitor PPI IV BID Pt is DNR status. If Hb continues to drop or active GI bleed noted during hospitalization, plan EGD, if POA ok on Full code for the procedure Obtain previous EGD records if possible Will follow Thank you for the consult. Plan discussed with: Patient, Other JONATHAN GAMBLE MD Mar 25, 2025 13:41
[2025-03-25] MEDS: HYDROcodone-ACET 5/325MG TAB PO PRN (16:22)
[2025-03-25] MEDS: NICOTINE 14 MG/24HR TOPICAL PATCH TD SCH (16:34)
--- NOTE | 2025-03-25 17:27 | DVHPN2 ---
Subjective c/o suprapubic pain /at times rlq no left sided pains//no vomiting Changes from previous H/P or p: No Changes Eyes: No Pain, No Vision change, No Conjunctivae inflammation, No Eyelid inflammation, No Other, No Redness ENT: No Ear pain, No Ear discharge, No Nose pain, No Nose discharge, No Nose congestion, No Mouth pain, No Mouth swelling, No Throat pain, No Throat swelling, No Other Cardiovascular: No Chest Pain, No Palpitations, No Orthopnea, No Paroxysmal Noc. Dyspnea, No Edema, No Lt Headedness, No Other Respiratory: No Cough, No Dry, No Shortness of breath, No SOB with excertion, No Wheezing, No Hemoptysis, No Pleuritic Pain, No Sputum, No Other Gastrointestinal: No Nausea, No Vomiting; Abdominal Pain; No Diarrhea, No Constipation; Melena; No Hematochezia, No Other Genitourinary: No Dysuria, No Frequency, No Incontinence, No Hematuria, No Retention, No Other Musculoskeletal: No other, No neck pain, No shoulder pain, No arm pain, No back pain, No hand pain, No leg pain, No foot pain Skin: No Rash, No Lesions, No Jaundice, No Bruising, No Other Objective Vitals Vital Signs Date Time Temp Pulse Resp B/P (MAP) Pulse Ox O2 Delivery O2 Flow Rate FiO2 03/25/25 16:58 98.9 53 18 120/63 (82) 94 98.9 03/25/25 08:00 Room Air* 0 21 Intake/Output Intake and Output 03/25/25 07:00 Intake Total 1200 ml Output Total 100 ml Balance 1100 ml Intake Oral 200 ml IV Total 1000 ml Output Urine Total 100 ml General Appearance: Alert, Oriented X3, Cooperative, No acute distress Lungs: Clear to auscultation Cardiovascular: Regular rate, Normal S1, Normal S2, No murmurs Abdomen: Normal bowel sounds, Soft, No tenderness, No hepatospenomegaly, No masses, Other (tenderness suprapubic area) Neuro: Normal gait, Normal speech, Strength at 5/5 X4 ext, Normal tone, S ensation intact Medications Current Medications Medications Dose Ordered Sig/Sol[place] Route Start Time Stop Time Status Last Admin Dose Admin Tamsulosin HCl 0.4 mg DAILY PO 03/25/25 10:00 03/25/25 09:46 0.4 MG Folic Acid 1 mg DAILY PO 03/25/25 10:00 03/25/25 09:46 1 MG Sodium Chloride 1,000 ml @ 100 mls/hr Q10H IV 03/24/25 17:15 03/25/25 13:22 100 MLS/HR Docusate Sodium 100 mg BIDPRN PRN PO 03/24/25 17:15 Ceftriaxone Sodium 50 ml @ 100 mls/hr DAILY@09 IV 03/25/25 09:00 03/25/25 09:45 100 MLS/HR Metronidazole 100 ml @ 100 mls/hr Q8HR IV 03/25/25 06:00 03/25/25 12:48 100 MLS/HR Pantoprazole Sodium 50 ml @ 10 mls/hr Q5H IV 03/24/25 17:15 03/25/25 16:38 10 MLS/HR Polyethylene Glycol 17 gm DAILYPRN PRN PO 03/24/25 17:15 Nicotine 1 patch DAILY@1700 TD 03/25/25 17:00 03/25/25 16:34 1 PATCH Acetaminophen/ Hydrocodone Bitart 1 tab Q6HPRN PRN PO 03/25/25 16:00 03/25/25 16:22 1 TAB Laboratory Results Laboratory Tests 03/25/25 06:05 03/25/25 11:46 Chemistry Test 03/24/25 18:23 03/25/25 06:05 Magnesium Level 1.7 mg/dL (1.6-2.6) Phosphorus Level 1.9 mg/dL (2.4-5.1) L Albumin 3.7 g/dL (3.2-4.8) Calcium Level 8.2 mg/dL (8.7-10.4) L Total Protein 6.2 g/dL (5.7-8.2) LFT Test 03/25/25 06:05 Alanine Aminotransferase (ALT) 24 U/L (7-40) Alkaline Phosphatase 101 U/L (46-116) Aspartate Amino Transferase (AST) 20 U/L (13-40) Total Bilirubin 0.4 mg/dL (0.2-1.0) Urinalysis Test 03/24/25 15:06 Urine Color Yellow (Yellow) Urine Clarity Turbid (Clear) H Urine pH 6.0 (5.0-9.0) Urine Specific [place] 1.034 (1.001-1.035) Urine Protein 1+ (Negative) H Urine Ketones 1+ (Negative) H Urine Blood Trace /uL (Negative) H Urine Nitrite 2+ (Negative) H Urine Bilirubin Negative (Negative) Urine Urobilinogen Normal mg/dL (Negative) Urine Leukocyte Esterase 3+ /uL (Negative) Urine RBC 9 /hpf (0 - 3) Urine Microscopic WBC 69 /HPF (0-3) H Urine Squamous Epithelial Cells Few /hpf (<5) Urine Bacteria Many /hpf (None Seen) H Urine Mucus Few (None Seen) Urine Glucose Normal mg/dL (Normal) Microbiology Microbiology Date/Time Source Procedure Growth Status 03/24/25 17:10 Blood Blood Culture - Preliminary NO GROWTH AFTER 24 HOURS OF INCUBATION. Resulted Labs and/or images reviewed: Labs reviewed by me, Image(s) reviewed by me Assessment/Plan Assessment/Plan lower gi bleed - gi consulted/last colonoscopy 02/11 gastroenteritis- on ceftriaxone/ r/o cystitis chronic pancreatitis per vt/asymptomatic coronary calcification- asymptomatic Plan discussed with: Patient My Orders Orders - VERONICA YOUNG MD Procedure Category Date Status Time Urine Bacterial VICKIE 03/25/25 In Process Culture 12:41 * [facility] [employer] Administrator CONS 03/25/25 Transmitted 13:31 Hydrocodone-Acet PHA 03/25/25 In Process 5/325mg Tab ([place] 16:00 Date of Service: Mar 25, 2025 Billing Provider: VERONICA YOUNG MD Common Visit Codes: [id number] INP/OBS CARE(MOD) VERONICA YOUNG MD Mar 25, 2025 17:27
[2025-03-25 18:46] LABS: Hematocrit 34.7 % (41.0-53.0); Hemoglobin 11.6 g/dL (13.5-17.5)
[2025-03-26] VITALS (8 sets, daily range): BP systolic 119–136; BP diastolic 68–97; PULSE 44–78; RESP 17–19; TEMP 97.5–99.3; O2SAT 90–95
[2025-03-26] MEDS: MELATONIN 5 MG TAB PO ONE (00:51)
[2025-03-26] MEDS: ONDANSETRON HCL 4 MG/2 ML VIAL IV PRN (00:52)
[2025-03-26] MEDS: HYDROmorphone HCL 2 MG/ML VL/or syr IV ONE (11:50)
--- NOTE | 2025-03-26 12:20 | DVHPN2 ---
Subjective c/o suprapubic pain /at times rlq no left sided pains//no vomiting Changes from previous H/P or p: Changes (was suicidal this morning/not now) Eyes: No Pain, No Vision change, No Conjunctivae inflammation, No Eyelid inflammation, No Other, No Redness ENT: No Ear pain, No Ear discharge, No Nose pain, No Nose discharge, No Nose congestion, No Mouth pain, No Mouth swelling, No Throat pain, No Throat swelling, No Other Cardiovascular: No Chest Pain, No Palpitations, No Orthopnea, No Paroxysmal Noc. Dyspnea, No Edema, No Lt Headedness, No Other Respiratory: No Cough, No Dry, No Shortness of breath, No SOB with excertion, No Wheezing, No Hemoptysis, No Pleuritic Pain, No Sputum, No Other Gastrointestinal: No Nausea, No Vomiting; Abdominal Pain; No Diarrhea, No Constipation; Melena; No Hematochezia, No Other Genitourinary: No Dysuria, No Frequency, No Incontinence, No Hematuria, No Retention, No Other Musculoskeletal: No other, No neck pain, No shoulder pain, No arm pain, No back pain, No hand pain, No leg pain, No foot pain Skin: No Rash, No Lesions, No Jaundice, No Bruising, No Other Objective Vitals Vital Signs Date Time Temp Pulse Resp B/P (MAP) Pulse Ox O2 Delivery O2 Flow Rate FiO2 03/26/25 11:50 67 19 136/81 03/26/25 08:48 98.1 95 98.1 03/26/25 08:00 Room Air* 0 21 Intake/Output Intake and Output 03/26/25 07:00 Intake Total 1740 ml Output Total 480 ml Balance 1260 ml Intake Oral 1640 ml IV Total 100 ml Output Urine Total 480 ml # Voids 1 General Appearance: Alert, Oriented X3, Cooperative, No acute distress Lungs: Clear to auscultation Cardiovascular: Regular rate, Normal S1, Normal S2, No murmurs Abdomen: Normal bowel sounds, Soft, No tenderness, No hepatospenomegaly, No masses, Other (tenderness suprapubic area) Neuro: Normal gait, Normal speech, Strength at 5/5 X4 ext, Normal tone, S ensation intact Medications Current Medications Medications Dose Ordered Sig/Solange Route Start Time Stop Time Status Last Admin Dose Admin Tamsulosin HCl 0.4 mg DAILY PO 03/25/25 10:00 03/25/25 09:46 0.4 MG Folic Acid 1 mg DAILY PO 03/25/25 10:00 03/25/25 09:46 1 MG Sodium Chloride 1,000 ml @ 100 mls/hr Q10H IV 03/24/25 17:15 03/25/25 13:22 100 MLS/HR Docusate Sodium 100 mg BIDPRN PRN PO 03/24/25 17:15 Ceftriaxone Sodium 50 ml @ 100 mls/hr DAILY@09 IV 03/25/25 09:00 03/25/25 09:45 100 MLS/HR Metronidazole 100 ml @ 100 mls/hr Q8HR IV 03/25/25 06:00 03/26/25 06:35 100 MLS/HR Pantoprazole Sodium 50 ml @ 10 mls/hr Q5H IV 03/24/25 17:15 03/26/25 00:52 10 MLS/HR Polyethylene Glycol 17 gm DAILYPRN PRN PO 03/24/25 17:15 Nicotine 1 patch DAILY@1700 TD 03/25/25 17:00 03/25/25 16:34 1 PATCH Acetaminophen/ Hydrocodone Bitart 1 tab Q6HPRN PRN PO 03/25/25 16:00 03/26/25 06:43 1 TAB Ondansetron HCl 4 mg Q4HPRN PRN IV 03/25/25 23:45 03/26/25 00:52 4 MG Morphine Sulfate 15 mg Q12HR PO 03/26/25 10:00 Laboratory Results Laboratory Tests 03/25/25 06:05 03/25/25 17:56 Urinalysis Test 03/24/25 15:06 Urine Color Yellow (Yellow) Urine Clarity Turbid (Clear) H Urine pH 6.0 (5.0-9.0) Urine Specific [place] 1.034 (1.001-1.035) Urine Protein 1+ (Negative) H Urine Ketones 1+ (Negative) H Urine Blood Trace /uL (Negative) H Urine Nitrite 2+ (Negative) H Urine Bilirubin Negative (Negative) Urine Urobilinogen Normal mg/dL (Negative) Urine Leukocyte Esterase 3+ /uL (Negative) Urine RBC 9 /hpf (0 - 3) Urine Microscopic WBC 69 /HPF (0-3) H Urine Squamous Epithelial Cells Few /hpf (<5) Urine Bacteria Many /hpf (None Seen) H Urine Mucus Few (None Seen) Urine Glucose Normal mg/dL (Normal) Microbiology Microbiology Date/Time Source Procedure Growth Status 03/25/25 16:45 Voided Urine Urine Culture - Preliminary No growth Resulted 03/24/25 17:40 Blood Blood Culture - Preliminary NO GROWTH AFTER 24 HOURS OF INCUBATION. Resulted Labs and/or images reviewed: Labs reviewed by me, Image(s) reviewed by me Assessment/Plan Assessment/Plan lower gi bleed - gi consulted/per gi if has active bleeding or drastic drop in hb may plan egd colonoscopy 02/11- reviwed nephrolithiasis-? renal colic causing scrotal pain- pain control gastroenteritis- on ceftriaxone/ copd stable chronic pain- on morphine at home r/o cystitis-also check us testicles/on ceftr chronic pancreatitis per vt/asymptomatic coronary calcification- asymptomatic Plan discussed with: Patient My Orders Orders - VERONICA YOUNG MD Procedure Category Date Status Time Urine Bacterial VICKIE 03/25/25 In Process Culture 12:41 * Gi D[facility] Armature And [employer] Winder CONS 03/25/25 Transmitted 13:31 Hydrocodone-Acet PHA 03/25/25 In Process 5/325mg Tab ([place] 16:00 Testicular Ultrasound US 03/26/25 Logged 09:51 Soc Telemed Psych CONS 03/26/25 Transmitted Consult 09:51 Morphine Extended PHA 03/26/25 In Process Release Tab (Oramorph 10:00 Date of Service: Mar 26, 2025 Billing Provider: VERONICA YOUNG MD Common Visit Codes: [id number] INP/OBS CARE(MOD) VERONICA YOUNG MD Mar 26, 2025 12:20
[2025-03-26] MEDS: MORPHINE SULF 15mg ER tab PO SCH (13:29)
--- NOTE | 2025-03-26 14:18 | DVH ---
EXAM: US TESTICULAR ULTRASOUND HISTORY: Testicular Pain COMPARISON: None TECHNIQUE: Multiple longitudinal and transverse sonographic images of the testicles/scrotum were obtained. Doppler was applied as indicated. FINDINGS: [RIGHT]: 3.8 x 1.6 x 2.3 cm. Normal echogenicity. Question relatively increased vascularity.. Normal epididymis with normal vascularity. Trace hydrocele. No varicocele [LEFT]: 3 x 1.9 x 3.1 cm. Normal echogenicity. Normal vascularity. Normal epididymis with normal vascularity. No hydrocele. No varicocele. Left testicular cysts. [OTHER]: None IMPRESSION: 1. Question relatively increased vascularity of the right testicle compared to the left and correlate for trace orchitis in the appropriate clinical setting. 2. Trace right hydrocele.
--- NOTE | 2025-03-26 21:05 | DVHPN2 ---
Progress Note - Dictate Date Seen: Mar 26, 2025 Medical Necessity Reason Pt with a Central, PICC or Fol: No Subjective No active GIB bled noted since admission vital signs Vital Sign Date Time Temp Pulse Resp B/P (MAP) Pulse Ox O2 Delivery O2 Flow Rate FiO2 03/26/25 21:00 98.4 78 18 119/73 (88) 93 98.4 03/26/25 08:00 Room Air* 0 21 Total Intake and Output 03/25/25 03/25/25 03/26/25 15:00 23:00 07:00 Intake Total 640 ml 1100 ml Output Total 480 ml Balance 160 ml 1100 ml medications Current Medications Medications Dose Ordered Sig/Solange Route Start Time Stop Time Status Last Admin Dose Admin Tamsulosin HCl 0.4 mg DAILY PO 03/25/25 10:00 03/26/25 16:13 0.4 MG Folic Acid 1 mg DAILY PO 03/25/25 10:00 03/25/25 09:46 1 MG Sodium Chloride 1,000 ml @ 100 mls/hr Q10H IV 03/24/25 17:15 03/26/25 19:02 100 MLS/HR Docusate Sodium 100 mg BIDPRN PRN PO 03/24/25 17:15 Ceftriaxone Sodium 50 ml @ 100 mls/hr DAILY@09 IV 03/25/25 09:00 03/25/25 09:45 100 MLS/HR Metronidazole 100 ml @ 100 mls/hr Q8HR IV 03/25/25 06:00 03/26/25 13:30 100 MLS/HR Pantoprazole Sodium 50 ml @ 10 mls/hr Q5H IV 03/24/25 17:15 03/26/25 15:01 10 MLS/HR Polyethylene Glycol 17 gm DAILYPRN PRN PO 03/24/25 17:15 Nicotine 1 patch DAILY@1700 TD 03/25/25 17:00 03/26/25 17:47 1 PATCH Acetaminophen/ Hydrocodone Bitart 1 tab Q6HPRN PRN PO 03/25/25 16:00 03/26/25 17:52 1 TAB Ondansetron HCl 4 mg Q4HPRN PRN IV 03/25/25 23:45 03/26/25 00:52 4 MG Morphine Sulfate 15 mg Q12HR PO 03/26/25 10:00 03/26/25 13:29 15 MG objective GE: in no disteress CVS: S1S2+ Lungs: clear Abdomen: soft, distended, nontender, BS+ laboratory and microbiology Laboratory Tests 03/25/25 17:56 03/25/25 06:05 Test 03/25/25 06:05 Range/Units Serum Glucose 103 74-106 mg/dL Assessment/Plan #CGE, ??melena #Anemia #Chronic pancreatitis #Abdominal pain, likely 2/2 to the above. Monitor Hb. Drop in Hb likely 2/2 to hemodilution. Close monitor PPI IV BID Pt is DNR status. If Hb continues to drop or active GI bleed noted during hospitalization, plan EGD, if POA ok on Full code for the procedure Obtain previous EGD records if possible Please contact Dr Valero if active GIB noted or significant Hb drop persists. If no GIB and Hb stable, follow up in GI clinic as out pt Thank you for allowing me to participate in the care of this patient Dietary Evaluation Review Comments: TPN to meet 76-95g protein, 1575-1890kcal Expected Outcomes/Goals: Recoverd GI functiom, Gradual wt gain Plan discussed with: Patient, Other JONATHAN GAMBLE MD Mar 26, 2025 21:05
[2025-03-27 00:56] VITALS: BP 120/76; PULSE 78; RESP 18; TEMP 98.4; O2SAT 96
[2025-03-27 04:58] VITALS: BP 133/74; PULSE 67; RESP 18; TEMP 98.4; O2SAT 96
--- NOTE | 2025-03-27 06:51 | ECG ---
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
[2025-03-27 07:12] LABS: Hematocrit 37.7 % (41.0-53.0); Hemoglobin 12.9 g/dL (13.5-17.5); Mean Corpuscular Hemoglobin 31.8 pg (28.0-32.0); Mean Corpuscular Volume 92.6 fL (80.0-100.0); Nucleated Red Blood Cells % 0.0 %
[2025-03-27 07:27] LABS: Chloride 100 mmol/L (98-107)
[2025-03-27 07:28] LABS: Anion Gap 13 (5-15); Carbon Dioxide 22 mmol/L (20-31)
[2025-03-27 07:33] LABS: BUN/Creatinine Ratio 15.7 (10.0-20.0); Blood Urea Nitrogen 11 mg/dL (9-23)
[2025-03-27 07:50] LABS: Calcium 8.3 mg/dL (8.7-10.4); Glucose 70 mg/dL (74-106); Potassium 3.2 mmol/L (3.5-5.1); Sodium 135 mmol/L (136-145)
[2025-03-27 08:00] VITALS: PULSE 151
[2025-03-27 09:06] VITALS: BP 117/76; PULSE 89; RESP 18; TEMP 99; O2SAT 95
[2025-03-27 13:30] VITALS: BP 124/75; PULSE 83; RESP 20; TEMP 98.8; O2SAT 95
[2025-03-27] MEDS: METOPROLOL TARTRATE 25 MG TAB PO SCH (15:34)
--- NOTE | 2025-03-27 15:41 | DVHDS2 ---
Discharge Summary Date of Admission Mar 24, 2025 at 17:12 Date of Discharge: Mar 27, 2025 Labs/Diagnostic Data: Laboratory Results Test 03/27/25 06:37 03/25/25 06:05 03/24/25 18:23 03/24/25 16:16 White Blood Count 10.4 10^3/uL (4.4-10.8) Red Blood Count 4.07 10^6/uL (4.5-5.90) Hemoglobin 12.9 g/dL (13.5-17.5) Hematocrit 37.7 % (41.0-53.0) Mean Corpuscular Volume 92.6 fL (80.0-100.0) Mean Corpuscular Hemoglobin 31.8 pg (28.0-32.0) Mean Corpuscular Hemoglobin Concent 34.3 g/dL (32.0-36.0) Red Cell Distribution Width 12.8 % (11.8-14.3) Platelet Count 233 10^3/uL (140-450) Mean Platelet Volume 7.5 fL (6.9-10.8) Neutrophils (%) (Auto) 77.7 % (37.0-80.0) Lymphocytes (%) (Auto) 9.2 % (10.0-50.0) Monocytes (%) (Auto) 12.9 % (0.0-12.0) Eosinophils (%) (Auto) 0.1 % (0.0-7.0) Basophils (%) (Auto) 0.1 % (0.0-2.0) Neutrophils # (Auto) 8.1 10 ^3/uL (1.6-8.6) Lymphocytes # (Auto) 1.0 10 ^3/uL (0.4-5.4) Monocytes # (Auto) 1.3 10 ^3/uL (0-1.3) Eosinophils # (Auto) 0 10 ^3/uL (0-0.8) Basophils # (Auto) 0 10 ^3/uL (0-0.2) Nucleated Red Blood Cells 0.0 % Sodium Level 135 mmol/L (136-145) Potassium Level 3.2 mmol/L (3.5-5.1) Chloride Level 100 mmol/L (98-107) Carbon Dioxide Level 22 mmol/L (20-31) Anion Gap 13 (5-15) Blood Urea Nitrogen 11 mg/dL (9-23) Creatinine 0.70 mg/dL (0.700-1.30) Glomerular Filtration Rate Calc 97 mL/min (>90) BUN/Creatinine Ratio 15.7 (10.0-20.0) Serum Glucose 70 mg/dL (74-106) Calcium Level 8.3 mg/dL (8.7-10.4) Total Bilirubin 0.4 mg/dL (0.2-1.0) Aspartate Amino Transferase (AST) 20 U/L (13-40) Alanine Aminotransferase (ALT) 24 U/L (7-40) Alkaline Phosphatase 101 U/L (46-116) Total Protein 6.2 g/dL (5.7-8.2) Albumin 3.7 g/dL (3.2-4.8) Phosphorus Level 1.9 mg/dL (2.4-5.1) Magnesium Level 1.7 mg/dL (1.6-2.6) Troponin I High Sensitivity 12 ng/L (</=54) Test 03/24/25 15:06 03/24/25 12:54 Urine Color Yellow (Yellow) Urine Clarity Turbid (Clear) Urine pH 6.0 (5.0-9.0) Urine Specific [place] 1.034 (1.001-1.035) Urine Protein 1+ (Negative) Urine Ketones 1+ (Negative) Urine Blood Trace /uL (Negative) Urine Nitrite 2+ (Negative) Urine Bilirubin Negative (Negative) Urine Urobilinogen Normal mg/dL (Negative) Urine Leukocyte Esterase 3+ /uL (Negative) Urine RBC 9 /hpf (0 - 3) Urine Microscopic WBC 69 /HPF (0-3) Urine Squamous Epithelial Cells Few /hpf (<5) Urine Bacteria Many /hpf (None Seen) Urine Mucus Few (None Seen) Urine Glucose Normal mg/dL (Normal) Prothrombin Time 10.8 sec (9.3-11.8) Prothrombin Time INR 1.02 (0.9-1.15) Activated Partial Thromboplast Time 29.9 SEC (24.5-34.5) Lactic Acid Level 2.0 mmol/L (0.4-2.0) B-Type Natriuretic Peptide 67.34 pg/mL (0-100) Lipase 27 U/L (12-53) Other Laboratory Tests 03/27/25 06:37 Brief Hx & Hospital Course: 74-year-old male with past medical history significant for prior upper GI bleed (1.5 years ago), arthritis, hypertension, severe constipation, chronic pain, COPD, prior hernia repair, tonsillectomy, and left shoulder surgery. He presents with recurrent epigastric pain, dark malodorous stool, and one episode of coffee-ground emesis. He denies chest pain or shortness of breath but reports having a subjective fever. His power of civil rights attorney is Katie ([phone]), who is currently at the bedside. He is DNR per POA. Patient and caregiver report that in January 2025, he had a colonoscopy that was not completed due to inadequate bowel prep, but an EGD performed by the GI group in [place] revealed a lesion in his stomach. In the ED, labs show hemoglobin 17.2, potassium 3.0, chloride 94, BUN 27, CO2 36, lactate 2.0, BNP 61.34. Troponins were negative x2. UA shows ketones, small nitrates, and bacteria. Chest x-ray was unremarkable. CT abdomen/pelvis revealed findings of chronic pancreatitis, a left kidney stone, and pancreatic duct calcification. No signs of active obstruction. CT also showed coronary calcifications and incidental note of glaucoma. Patient denies alcohol or drug use. He will be admitted for acute upper GI bleeding. Plan includes GI consult, IV fluids, empiric antibiotics (Rocephin and Flagyl), pain management with Dilaudid, and bowel regimen as needed. will admit to tele He got better and advanced diet developed new onset afib and started on metoprolol He left AMA Condition at Discharge: Good Final Diagnosis/Problems List ACUTE ON CHRONIC PANCREATITIS Atrial fibrillation Discharge Disposition: AMA Discharge Instruct/Medications Diet: Regular Activity: No Restrictions, As Tolerated Follow Up/Referral: pcp in 7 days Medications: same home medications Scheduled Alprazolam (Xanax), 1 TAB PO TID, (Reported) Cholecalciferol (Vitamin D3), 5,000 UNIT OR QWEEKLY, (Reported) Docusate Sodium (Colace), 1 CAP PO DAILY, (Reported) Eszopiclone (Lunesta), 1 TAB PO QPM, (Reported) Felodipine (Felodipine Er), 10 MG PO DAILY, (Reported) Folic Acid (Folic Acid), 1 MG PO DAILY, (Reported) Hydrocodone-Acetaminophen (Hydrocodone Bitartrate/AC 10-325 mg), 1 TAB PO Q4HP, (Reported) Morphine Sulfate (Morphine Sulfate), 1 TAB PO BID, (Reported) Nitrofurantoin Monohydrate Mac (Macrobid), 100 MG PO BID Omeprazole (Gnp Omeprazole), 40 MG PO DAILY, (Reported) Ondansetron (Zofran), 4 MG PO TID, (Reported) Potassium Chloride (Potassium Chloride Cr), 20 MEQ PO BID, (Reported) Senna (Senokot), 2 TAB PO BID, (Reported) Tamsulosin Hcl (Tamsulosin Hcl), 0.4 MG PO DAILY, (Reported) Temazepam (Temazepam), 22.5 MG PO HS, (Reported) Tizanidine Hydrochloride (Zanaflex), 4 MG PO Q8HP, (Reported) Trazodone HCl (Trazodone Hydrochloride), 150 MG PO BID, (Reported) Miscellaneous Medications Ferrous Sulfate (Ferosul), 325 MG PO, (Reported) Discharge Statement: "Patient was advised to return to the ER or call 911 if any headaches, dizziness, shortness of breath, chest pain, abdominal pain, bleeding, fevers, or worsening of medical condition. Patient was counseled about treatment plan, medications, possible side effects, patientverbalized understanding. All questions were answered to the best of my ability. This discharge took greater then 30 minutes in planning, reviewing documentation, counseling the patient, and discussing with other team members." ASSESSMENT ASSESSMENT Assessment ACUTE ON CHRONIC PANCREATITIS Date of Service: Mar 27, 2025 Billing Provider: APURVA SMYTH MD Common Visit Codes: [id number] DISCH DAY >30min APURVA SMYTH MD Mar 27, 2025 15:41
--- NOTE | 2025-03-27 16:20 | DVHSR ---
APPROVED REPORT EXAM: Two-dimensional and M-mode echocardiogram with Doppler and color Doppler. INDICATION Arrhythmia RISK FACTORS Height: 6', Weight: 141 DIMENSIONS LVDd 5.2 (3.8-5.7cm) LA (2D) 4.1 (1.9-4.0cm) Aortic Root (2.0-3.7cm) LVDs 3.7 (2.5-4.0cm) LA (MM) (1.9-4.0cm) Aortic Cusp Exc 1.9 (1.5-2.0cm) EF (%) 55.0 (55-70%) Rt. Atrium (1.9-4.0cm) Asc. Aorta cm IVSd 0.7 (0.7-1.1cm) RV (D) (1.8-2.4cm) Mitral Valve Mitral Mitral Stenosis A wave m/s MV Peak GR. 76mmHg E/A ratio 0.0 2D MVA cm2 Aortic Valve Aortic Valve Aortic Stenosis LVOT Diameter 2.5 (1.8-2.4cm) Doppler CRISTIN cm2 Other Information Quality : Technically Limited Rhythm : Technically limited study due to body habitus and patient position. Conclusion lvef 55% normal RV function left atrium mild enlarged no severe valve abnormality noted
--- NOTE | 2025-03-28 10:19 | ECG ---
[facility] Test Date: 2025-03-24 Test Time: 17:19:03 Pat Name: ABDULLAHI CARR Department: ED Room: 0297T B Gender: M Historical Archeologist: michael : 1950 Requested By: APURVA SMYTH Order Number: [id number] Reading MD: Jt Ann Measurements Intervals [place] Rate: 74 P: 22 [place]: 199 QRS: 95 QRSD: 95 T: -6 QT: 507 QTc: 563 Interpretive Statements Sinus rhythm Right axis deviation Abnormal R-wave progression, late transition Borderline abnrm T, anterolateral leads Prolonged QT interval Electronically Signed On 03-30-2025 19:01:44 PST by Jt Ann Please click the below link to view image of tracing.
--- NOTE | 2025-03-28 13:08 | ECG ---
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
== END 2025-03-27 16:18 | disposition left against medical advice (07) | DRG 377 ==
LOC: ER 12:07 → EDBD 12:07 → OVERFLOW 17:12 → TELE-WESTW 18:56
PROVIDERS: ADMIT Hospitalist; ATTEND Hospitalist
DX: K29.01 Acute gastritis with bleeding (principal); K85.90 Acute pancreatitis without necrosis or infection, unspecified; Z66 Do not resuscitate; N30.00 Acute cystitis without hematuria; R65.10 Systemic inflammatory response syndrome (SIRS) of non-infectious origin without acute organ dysfunction; D64.9 Anemia, unspecified; J44.9 Chronic obstructive pulmonary disease, unspecified; I10 Essential (primary) hypertension; K86.1 Other chronic pancreatitis; Z53.29 Procedure and treatment not carried out because of patient's decision for other reasons; E87.6 Hypokalemia; K52.9 Noninfective gastroenteritis and colitis, unspecified; K59.09 Other constipation; G89.29 Other chronic pain; N20.0 Calculus of kidney; I25.10 Atherosclerotic heart disease of native coronary artery without angina pectoris; I48.91 Unspecified atrial fibrillation; H40.89 Other specified glaucoma; F17.200 Nicotine dependence, unspecified, uncomplicated; Z88.5 Allergy status to narcotic agent; Z80.0 Family history of malignant neoplasm of digestive organs; Z80.42 Family history of malignant neoplasm of prostate; Z80.8 Family history of malignant neoplasm of other organs or systems; Z82.3 Family history of stroke; Z82.49 Family history of ischemic heart disease and other diseases of the circulatory system; Z83.3 Family history of diabetes mellitus
CPT/HCPCS: 36415; 71045; 74177; 76870; 80048; 80053; 81001; 83605; 83690; 83735; 83880; 84100; 84484; 85014; 85018; 85025; 85610; 85730; 86850; 86900; 86901; 87040; 87086; 93005; 93306; 96361; 96365; 96375; 99291; G0378; J0692; J2405; J2470; J3490